=== PATIENT | male | born 1935 | race Caucasian/White ===

== ENCOUNTER 2020-08-02 23:16 | Emergency (ER) | payer MEDICARE, BC, SELFPAY ==
--- NOTE | ~2020-08-02 | XR_ITS ---
EXAMINATION: XR G tube replacement w image DATE: 08/02/2020 23:56 INDICATION: Feeding tube placement. TECHNIQUE: A supine view of the abdomen was obtained. COMPARISON: Abdomen radiograph 05/10/2019 FINDINGS: There are no dilated loops of bowel. There is contrast in the gastrostomy tube and in the s tomach and duodenum. The gastrostomy tube is in expected position in the body of the stomach. There i s a filter in the inferior vena cava. IMPRESSION: 1. Gastrostomy tube in expected position. Reviewed, dictated and finalized at location A. [employer]
[2020-08-02 23:15] VITALS: BP 139/75; PULSE 88; RESP 19; TEMP 37; O2SAT 94
--- NOTE | 2020-08-02 23:20 | ED.GENADULT ---
HPI - General Adult General Chief complaint: Unspecified Stated complaint: g tube pulled out Time Seen by Provider: 08/02/20 23:20 Source: EMS Mode of arrival: EMS Limitations: dementia History of Present Illness HPI narrative: Patient brought in from a long-term after he pulled his G-tube out. No other complaints. Unable to obtain any history from the patient due to history of dementia. Related Data Allergies Allergy/AdvReac Type Severity Reaction Status Date / Time MEPERIDINE HCL Allergy Mild Uncoded 05/10/19 14:27 Review of Systems Review of Systems: ROS unobtainable: Yes unobtainable due to mental status (History of dementia) Exam Const: General: no acute distress and alert Orientation/consciousness: No patient oriented x3 Limitations: behavioral limitations HENMT: Head: normal to inspection Eyes: Conjunctivae: conjunctivae normal Pupils: Equal, round and reactive pupils present EOM: EOMs intact bilaterally Neck: Neck: normal visual inspection Chest: Chest palpation & inspection: normal inspection of the chest Resp: Effort & Inspection: normal respiratory effort, not labored, no retractions, not tachypneic and no use of accessory muscles Auscultation: not clear to auscultation bilaterally Cardio: Rate: regular rate Rhythm: regular rhythm Heart sounds: Murmur heart sound present GI: GI Palp: Yes Soft to palpation, No Guarding due to palpation present (GI) and No Rigid due to palpation Auscultation: normal bowel sounds Skin: General skin exam: normal color Neuro: Other: Not oriented to time place name or situation, moves all 4 extremities. Unable to obtain complete neuro exam patient uncooperative and unable to understand or follow commands. Course Vital Signs Vital signs: Vital Signs Temperature 37.0 C 08/02/20 23:15 Pulse Rate 88 08/02/20 23:15 Respiratory Rate 19 08/02/20 23:15 Blood Pressure 139/75 08/02/20 23:15 Pulse Oximetry 94 08/02/20 23:15 Temperature 37.0 C 08/02/20 23:15 Pulse Rate 88 08/02/20 23:15 Respiratory Rate 19 08/02/20 23:15 Blood Pressure 139/75 08/02/20 23:15 Pulse Oximetry 94 08/02/20 23:15 Procedures Feeding Tube Replacement Feeding Tube #1: Feeding Tube Placement Date: 08/03/20 Feeding Tube Placement Time: 23:30 Type of Tube: G-J Tube Insertion Site Prior to Procedure: clean Tube Used for Reinsertion: other Ma[place] Tube Size (F): 16 Balloon size (mL): 20 Verification of Placement: auscultation, KUB and gastrografin injection Patient Tolerated Procedure: well Medical Decision Making Vital Signs Vital Signs: Vital Signs Temperature 37.0 C 08/02/20 23:15 Pulse Rate 88 08/02/20 23:15 Respiratory Rate 19 08/02/20 23:15 Blood Pressure 139/75 08/02/20 23:15 Pulse Oximetry 94 08/02/20 23:15 Temperature 37.0 C 08/02/20 23:15 Pulse Rate 88 08/02/20 23:15 Respiratory Rate 19 08/02/20 23:15 Blood Pressure 139/75 08/02/20 23:15 Pulse Oximetry 94 08/02/20 23:15 Discharge Plan Discharge Clinical Impression: Gastrojejunostomy tube dislodgement Patient Disposition: NH Long Term/Asst Living Condition: Improved Instructions: Antibiotic Form, How to Use and Care for Your PEG Tube (ED) Follow-up/Referrals: Reynold Sandy MD [Primary Care Provider] - 08/06/20 Time of Disposition: 00:10
--- NOTE | 2020-08-02 23:38 | PC.NURSE ---
Pt. G-tube replaced by ERP [place]. Gtube secured w/ 20 ml syringe and gauze dressing.
--- NOTE | 2020-08-03 00:32 | PC.NURSE ---
Called [facility] for pt. transport. ETA [id number].
--- NOTE | 2020-08-03 00:33 | PC.NURSE ---
This RN attempted to call reports 3x. uable to give report
--- NOTE | 2020-08-03 00:34 | PC.NURSE ---
Report to Feliciano leavitt RN
[2020-08-03 00:54] VITALS: BP 133/87; PULSE 100; RESP 12; O2SAT 94
== END 2020-08-03 01:44 ==
PROVIDERS: Emergency Provider Emergency Medicine; PCP Family Medicine
DX: Z43.1 Encounter for attention to gastrostomy (principal); F03.90 Unspecified dementia, unspecified severity, without behavioral disturbance, psychotic disturbance, mood disturbance, and anxiety
CPT/HCPCS: 49450; 99284

== ENCOUNTER 2020-10-02 06:05 | Inpatient (IN) | payer MEDICARE, BC, SELFPAY ==
[2020-10-02] VITALS (19 sets, daily range): BP systolic 69–122; BP diastolic 34–83; PULSE 77–160; RESP 16–24; TEMP 36.6–37.3; O2SAT 88–100; BMI 24.3
--- NOTE | ~2020-10-02 | XR_ITS ---
XR chest 1V portable 10/02/2020 08:01 Indication: Infiltrates noted on G-tube examination Procedure: AP portable chest Comparison: Comparison to multiple prior studies sequentially, with oldest reviewed study dated 06/29. Findings: Diffuse right-sided airspace disease. Right pleural effusion. Mediastinal shift to the righ t. Right IJ central line tip in SVC. No pneumothorax identified. Impression: 1: Diffuse asymmetric right-sided airspace disease with volume loss which may represent a combination of pneumonia and atelectasis. 2: Right pleural effusion. Reviewed, dictated and finalized at location A. WEIGHER Impression: 1: Diffuse asymmetric right-sided airspace disease with volume loss which may r epresent a combination of pneumonia and atelectasis. 2: Right pleural effusion.
--- NOTE | ~2020-10-02 | XR_ITS ---
XR G tube evaluation w imaging 10/02/2020 07:40 Indication: Evaluate gastric tube position Procedure: Supine view of the abdomen Comparison: Comparison to multiple prior studies sequentially, with oldest reviewed study dated 08/30. Findings: There are mildly distended small bowel loops in the left upper abdomen. There is contrast i n the stomach and duodenum. Gastric tube in the body the stomach. IVC filter partially visualized. Th ere is a right pleural effusion with by basilar airspace disease Impression: 1: Gastrostomy tube in expected position.. 2: Right basilar airspace disease, suspicious for pneumonia. Consider correlation with chest x-ray. 3: Small right pleural effusion. Reviewed, dictated and finalized at location A. TING MACHINE OPERATOR Impression: 1: Gastrostomy tube in expected position.. 2: Right basilar airspace disease, suspicious for pneumonia. Consider correlat ion with chest x-ray. 3: Small right pleural effusion.
--- NOTE | ~2020-10-02 | XR_ITS ---
EXAMINATION: [id number] EXAM DATE: 10/03/2020 17:31 INDICATION: Right pleural effusion. Postthoracentesis. TECHNIQUE: Portable AP frontal chest x-ray was obtained. Comparison is made to prior examination from earlier same date. FINDINGS: There is a right-sided ventricular shunt. Interval decrease in size of the small to moderat e right pleural effusion following thoracentesis. No evidence of postprocedure pneumothorax. Mild car diomegaly. Skin fold over the left hemithorax. There is right basilar atelectasis. Possible superimpo sed edema and pneumonia. IMPRESSION: 1. Small to moderate right pleural effusion with decrease in size following thoracentesis. 2. Right basilar atelectasis and possibly infection. Reviewed, dictated and finalized at location A. EL ENGINEER IMPRESSION: 1. Small to moderate right pleural effusion with decrease in size following th oracentesis. 2. Right basilar atelectasis and possibly infection.
--- NOTE | ~2020-10-02 | CT_ITS ---
EXAMINATION: CTA chest PE protocol DATE: 10/02/2020 09:38 INDICATION: Hypoxia. TECHNIQUE: Computed tomography angiography (CTA) of the chest was performed with 100 mL Omnipaque-350 intravenous contrast timed to evaluate the pulmonary arteries. Coronal maximum intensity projection 3D-reconstructions were created by the technologist. Automated exposure control and iterative reconst ruction technique were employed. The dose-length product was 695.30 mGy-cm. COMPARISON: Chest CT 05/22/2015 FINDINGS: The patient is laying on his right side. There is mild scarring at left lung apex. Again se en are a few nodules in left lower lobe measuring up to 7 mm, likely benign. There is a moderate-size d right pleural effusion. There is adjacent passive atelectasis in right lung. There is mucous in bro nchus intermedius. There are worsened parenchymal calcifications in right lung in the areas of atelec tasis, likely a component of chronic lung disease. There is mediastinal and right supraclavicular lym phadenopathy. There is a right internal jugular central venous catheter with tip in superior vena cav a. There is left atrial enlargement of the heart. There are coronary artery calcifications. No perica rdial effusion. There is a filter in the infrarenal inferior vena cava. There are cysts in the kidney s measuring up to 2.3 cm on the right. Partially visualized is a 1.3 cm mass in right kidney measurin g soft tissue attenuation. There is bulky left para-aortic and aortocaval lymphadenopathy. For exampl e, a left para-aortic bryan mass measures 7.3 x 4.3 cm. There is periportal lymphadenopathy. There ar e gallstones in the gallbladder, which is normal in size. There is no pulmonary embolus. There is kyp hosis of thoracic spine. There is severe cervical spondylosis and mild thoracic spondylosis. There is mild chronic anterior wedging of multiple thoracic vertebral bodies. IMPRESSION: 1. No pulmonary embolus. 2. Chest and abdominal lymphadenopathy suspicious for malignancy such as lymphoma. 3. Partially visualized 1.3 cm right kidney mass, which may be a hemorrhagic cyst or less likely a so lid neoplasm. Abdomen CT without and with contrast is recommended. 4. Moderate-sized right pleural effusion. 5. Worsened chronic right lung disease. Reviewed, dictated and finalized at location A. ANALYST IMPRESSION: 1. No pulmonary embolus. 2. Chest and abdominal lymphadenopathy suspicious for malignancy such as lympho ma. 3. Partially visualized 1.3 cm right kidney mass, which may be a hemorrhagic cy st or less likely a solid neoplasm. Abdomen CT without and with contrast is rec ommended. 4. Moderate-sized right pleural effusion. 5. Worsened chronic right lung disease.
--- NOTE | ~2020-10-02 | US_ITS ---
EXAMINATION: US thoracentesis DATE: 10/03/2020 17:28 INDICATION: pleural effusion TECHNIQUE: The skin was prepped and draped in sterile fashion. 1% lidocaine was used for local anesth esia. Under ultrasound guidance, a 5 Fr catheter with trochar was advanced into the right pleural eff usion. Fluid was aspirated. The catheter was removed, and a dressing was applied. There were no immed iate complications. FINDINGS: Ultrasound images demonstrate a right pleural effusion and the catheter within the fluid. IMPRESSION: 1. Successful ultrasound-guided thoracentesis yielding 1000 mL of clear, yellow fluid. Reviewed, dictated and finalized at location A. E MACHINE OPERATOR IMPRESSION: 1. Successful ultrasound-guided thoracentesis yielding 1000 mL of clear, yello w fluid.
--- NOTE | ~2020-10-02 | XR_ITS ---
XR chest 1V portable 10/05/2020 14:14 Indication: Respiratory distress Procedure: AP portable chest Comparison: Comparison to multiple prior studies sequentially, with oldest reviewed study dated 06/29. Findings: Right IJ central line tip in the SVC. Diffuse pulmonary edema. Right pleural effusion. No p neumothorax. Mediastinal shift to the right, consistent with volume loss. No pneumothorax. No acute o sseous abnormality. Impression: 1: Diffuse bilateral airspace disease with volume loss on the right. Differential diagnosis includes edema, pneumonia and/or atelectasis. 2: Small right pleural effusion. Reviewed, dictated and finalized at location A. GER ELECTRICAL Impression: 1: Diffuse bilateral airspace disease with volume loss on the right. Differenti al diagnosis includes edema, pneumonia and/or atelectasis. 2: Small right pleural effusion.
--- NOTE | 2020-10-02 07:12 | PC.NURSE ---
Report received from AIDEN Chino. Pt resting comfortably on stretcher. Pt is noncommunicative and does not follow commands. Resp nonlabored, abd soft with g-tube in place. No dried blood noted to nares, mouth, or g-tube insert spot. Note dried blood to right elbow.
--- NOTE | 2020-10-02 07:14 | ED.GENADULT ---
HPI - General Adult General Chief complaint: Unspecified Stated complaint: gtube disconnected/combative Time Seen by Provider: 10/02/20 07:07 Source: EMS and RN notes reviewed History of Present Illness HPI narrative: Patient is a 84 y/o male sent here for gastrotomy tube evaluation and possible bleeding. NH reports that patient's g tube is disconnect and they noticed some blood on the pillow, but did not notice any bleeding. Patient is non verbal and unable to provide any history. Related Data Home Medications Medication Instructions Recorded Confirmed albuterol sulfate 90 mcg INHALATION QID 10/02/20 finasteride 5 mg FEEDING TUBE DAILY 10/02/20 lansoprazole 30 mg DAILY 10/02/20 levalbuterol HCl 0.63 mg INHALATION QID 10/02/20 loperamide [Anti-Diarrheal 2 mg FEEDING TUBE Q4H PRN 10/02/20 (loperamide)] sertraline 100 mg FEEDING TUBE DAILY 10/02/20 Allergies Allergy/AdvReac Type Severity Reaction Status Date / Time MEPERIDINE HCL Allergy Mild Uncoded 05/10/19 14:27 Review of Systems Review of Systems: ROS unobtainable: Yes unobtainable due to mental status Exam Const: General: no acute distress and well developed Orientation/consciousness: confusion HENMT: Head: normocephalic Ears: external ears normal General nose exam: Normal external nose present Eyes: General: appearance normal, both eyes and all related structures Conjunctivae: conjunctivae normal Neck: Neck: normal visual inspection and full ROM Chest: Chest palpation & inspection: normal inspection of the chest and no tenderness Resp: Effort & Inspection: normal respiratory effort Auscultation: clear to auscultation bilaterally Cardio: Rate: regular rate Rhythm: regular rhythm GI: Inspection: other (gastrostomy tube in place) GI Palp: No abdominal tenderness and Yes Soft to palpation Skin: General skin exam: normal color and turgor normal Other: some dry blood on right elbow, abrasion with scab on abdomen, no active bleeding Neuro: Cognition (Neuro): abnormal cognition Extrem: General: normal to inspection, full ROM and no pedal edema Psych: Appearance: grossly normal Affect: Blunted affect present Course Consultations Consultation #1: Discussed with Dr. Ambriz, who agrees to admit. Date: 10/02/20 Time: 09:08 Vital Signs Vital signs: Vital Signs Temperature 36.6 C 10/02/20 06:09 Pulse Rate 89 10/02/20 06:09 Respiratory Rate 18 10/02/20 06:09 Blood Pressure 98/73 L 10/02/20 06:09 Pulse Oximetry 93 10/02/20 06:09 Temperature 36.6 C 10/02/20 06:09 Pulse Rate 90 10/02/20 11:40 Respiratory Rate 16 10/02/20 11:40 Blood Pressure 100/83 10/02/20 11:40 Pulse Oximetry 93 10/02/20 11:40 Medical Decision Making Vital Signs Vital Signs: Vital Signs Temperature 36.6 C 10/02/20 06:09 Pulse Rate 89 10/02/20 06:09 Respiratory Rate 18 10/02/20 06:09 Blood Pressure 98/73 L 10/02/20 06:09 Pulse Oximetry 93 10/02/20 06:09 Temperature 36.6 C 10/02/20 06:09 Pulse Rate 90 10/02/20 11:40 Respiratory Rate 16 10/02/20 11:40 Blood Pressure 100/83 10/02/20 11:40 Pulse Oximetry 93 10/02/20 11:40 Lab Data Result diagrams: 10/02/20 07:28 10/02/20 07:28 Labs: Lab Results 10/02/20 10/02/20 10/02/20 Range/Units 07:28 07:28 07:28 WBC 9.7 (4.5-10.0) K/mm3 RBC 3.90 L (4.6-6.20) M/mm3 Hgb 12.3 L (14.0-18.0) g/dL Hct 36.3 L (42.0-52.0) % MCV 93.1 (80-100) fl MCH 31.5 (26-34) pg MCHC 33.9 (32-36) g/dl RDW 14.1 (11.5-14.5) % Plt Count 278 (150-375) k/mm3 MPV 9.2 (7.4-10.4) fl Immature Gran % (Auto) 1.0 H (0-0.5) % Neut % (Auto) 78.8 H (45.5-73.1) % Lymph % (Auto) 4.2 L (18.3-44.2) % [place] % (Auto) 13.0 H (2.6-8.5) % Eos % (Auto) 2.4 (0-4.4) % Baso % (Auto) 0.6 (0.2-1.2) % Lymph # (Auto) 0.41 L (0.9-3.2) K/mm3 [place] # (Auto) 1.3 H (0.1-0.6) K/mm3 Eos
--- NOTE | 2020-10-02 07:30 | PC.NURSE ---
Labs collected with assist x2. Pt combative when touched, and does not follow commands for xray and lying still.
[2020-10-02 07:35] LABS: Basophils Absolute Auto 0.1 K/mm3 (0.0-0.1); Basophils Percent Auto 0.6 % (0.2-1.2); Eosinophils Absolute Auto 0.2 K/mm3 (0-0.3); Eosinophils Percent Auto 2.4 % (0-4.4); Hematocrit 36.3 % (42.0-52.0); Hemoglobin 12.3 g/dL (14.0-18.0); Lymphocytes Absolute Auto 0.41 K/mm3 (0.9-3.2); Lymphocytes Percent Auto 4.2 % (18.3-44.2); Mean Corpuscular HGB Conc 33.9 g/dl (32-36); Mean Corpuscular Hemoglobin 31.5 pg (26-34); Mean Corpuscular Volume 93.1 fl (80-100); Mean Platelet Volume 9.2 fl (7.4-10.4); Monocytes Absolute Auto 1.3 K/mm3 (0.1-0.6); Neutrophils Absolute Auto 7.6 K/mm3 (1.3-6.7); Neutrophils Percent Auto 78.8 % (45.5-73.1); Platelet Count Result 278 k/mm3 (150-375); Red Cell Distribution Width 14.1 % (11.5-14.5); White Blood Count 9.7 K/mm3 (4.5-10.0)
[2020-10-02 07:47] LABS: Platelet Estimate Adequate (Adequate); Stomatocytes 1+ (NORMAL)
[2020-10-02 07:48] LABS: Anion Gap 4 mmol/L (8-16); Blood Urea Nitrogen 21 mg/dL (9-20); Calcium 8.7 mg/dL (8.4-10.2); Carbon Dioxide 29 mmol/L (22-30); Chloride 97 mmol/L (98-107); Estimated CRCL calculation 57 ml/min; Estimated Glomerular Filt Rate > 60; Glucose 101 mg/dL (75-110); Potassium 4.8 mmol/L (3.4-5.0); Sodium 130 mmol/L (137-145)
[2020-10-02 08:21] LABS: NT Pro B Type Natriuretic Pept 1520 PG/ML (5-100)
--- NOTE | 2020-10-02 08:31 | ECG_ITS ---
Measurements Intervals [place] Rate: 83 P: 50 VA: 146 QRS: 10 QRSD: 97 T: 86 QT: 371 QTc: 438 Interpretive Statements SINUS RHYTHM CANNOT RULE OUT SEPTAL INFARCT, AGE INDETERMINATE NONSPECIFIC ST ELEVATION IN ANTERIOR LEADS BORDERLINE ST-T WAVE ABNORMALITY- INF/HIGH LAT LEADS BASELINE ARTIFACT- I, II, III, AVR, AVL, AVF, V1, V4-V6 BORDERLINE ECG Electronically Signed On 10-02-2020 9:20:32 MERCHANDISE ASSOCIATE by Kiet Garrison D.O.
--- NOTE | 2020-10-02 08:31 | PC.NURSE ---
Note sp02 85-88% on room air. Pt awoken, instructed to take deep breaths, and pt does not follow commands to do so. sp02 remains 88-89%. Attempt to place pt on 2L/NC, pt will not leave the nasal cannula on; o2 increased to 10L blow by and spo2 increases to 91%.
--- NOTE | 2020-10-02 08:59 | PC.NURSE ---
IV initiated with 1st attempt with assist x4 to help hold. Pt continues to repeatedly swipe away at the oxygen and tubing. Spo2 room air when awake and agitated 93%.
--- NOTE | 2020-10-02 09:02 | PC.NURSE ---
Pt incontinent of stool x2 during the IV initiation and obtaining the EKG. Note wounds to gluteal folds.
[2020-10-02] MEDS: FUROSEMIDE INJ 40 MG/4 ML VIAL IV PUSH (09:12)
[2020-10-02 09:25] LABS: Lactic Acid Reflex 1.6 mmol/L (0.7-2.1)
[2020-10-02] MEDS: LORazepam INJ (*CRX) 2 MG/ML VIAL (09:26)
--- NOTE | 2020-10-02 09:31 | PC.NURSE ---
Pt given 2mg ativan IVP per v.o. Dr. Rodgers for combativeness in CT Scan. Pt seems to calm down but thrashes arms when attempt to place o2 near face or when the table moves. Will attempt CTA.
--- NOTE | 2020-10-02 09:51 | PC.NURSE ---
Pt returns from CT, per tech was able to complete the test. Note blood to right shoulder, the side the patient is lying. Note pt has large cough then spits out phlegm with dark blood clots in it. Airway appears clear. spo2 99% with o2 near face. Ketamine not given due to scan being completed after ativan given.
--- NOTE | 2020-10-02 10:14 | ECG_ITS ---
Measurements Intervals [place] Rate: 156 P: RI: 0 QRS: -50 QRSD: 98 T: 132 QT: 281 QTc: 454 Interpretive Statements SUPRAVENTRICULAR TACHYCARDIA LEFT AXIS DEVIATION ANTEROSEPTAL INFARCT, AGE INDETERMINATE ST-T WAVE ABNORMALITY IN ANTEROLAT/HIGH LAT LEADS- CONSIDER ISCHEMIA BASELINE WANDER- I ABNORMAL ECG Electronically Signed On 10-02-2020 10:23:17 BUSINESS INITIATIVES MANAGER by Kiet Garrison D.O.
--- NOTE | 2020-10-02 10:16 | PC.NURSE ---
Report to 3rd floor, return to room to transport pt to floor, note pt's heart rate up to 160's, drop in sp02. Attempt to suction pt clamping down teeth. Pt continuous grunting, otherwise remains nonverbal. O2 placed via NRB mask and pt does not attempt to pull it off. Dr. Rodgers aware of pt's change in condition. Repeat EKG being done.
--- NOTE | 2020-10-02 10:20 | PC.NURSE ---
Covid swab collected nasophargeal per direction of recharger as pt clamping mouth shut and unable to obtain a pharyngeal swab.
[2020-10-02] MEDS: ADENOSINE IV SOLN 6 MG/2 ML VIAL IV PUSH (10:31)
--- NOTE | 2020-10-02 10:37 | PC.NURSE ---
Adenosine given IVP as ordered. Note pt's heart rate slows to 96, appears to be SR in nature. Pt now leaving NRB mask in place, sp02 90% on 15L. Note pt has bleeding from left nare where covid swab obtained. Awaiting ABG draw.
--- NOTE | 2020-10-02 10:49 | PC.NURSE ---
RT at bedside to attempt ABG's.
--- NOTE | 2020-10-02 11:02 | ECG_ITS ---
Measurements Intervals [place] Rate: 94 P: 67 MI: 146 QRS: -14 QRSD: 91 T: 85 QT: 388 QTc: 485 Interpretive Statements SINUS RHYTHM VENTRICULAR PREMATURE COMPLEX CANNOT RULE OUT SEPTAL INFARCT, AGE INDETERMINATE BORDERLINE ST-T WAVE ABNORMALITY- HIGH LATERAL LEADS ABNORMAL ECG Electronically Signed On 10-02-2020 11:13:32 CONCRETE BUCKET HOOKER by Kiet Garrison D.O.
[2020-10-02 11:03] LABS: Alveolar/Arterial O2 Gradient 613.3 mmHg; Base Excess ABG -1.5 mEq/l (+/-2.0); Fractional Inspired Oxygen 100 %; HCO3 ABG 22.5 mEq/l (22.0-26.0); Oxygen Content ABG 17.3 %vol (16.0-22.0); PCO2 ABG 35.6 mmHg (35.0-45.0); PO2 ABG 64.1 mmHg (80.0-100.0); PO2 FiO2 Ratio Arterial Blood 0.64 %; Total Hemoglobin 13.5 g/dL (12.0-18.0); pH ABG 7.418 (7.350-7.450)
[2020-10-02 11:04] LABS: Device NON-REBREATHER MASK; Site Drawn LEFT BRACHIAL
--- NOTE | 2020-10-02 11:10 | PC.NURSE ---
[facility] refaxed to [facility].
--- NOTE | 2020-10-02 11:16 | PC.NURSE ---
3rd EKG done as pt's heart rate has decreased.
--- NOTE | 2020-10-02 11:23 | PC.NURSE ---
Pt's neice and porcelain enameling supervisor of pt's (Keely @ [phone]) updated in [place]. States that the patient received the covid vaccine approx 1 wk ago.
--- NOTE | 2020-10-02 11:45 | ADMGEN ---
This patient, Donald Marroquin, was admitted to IMU Room 214-01 at 1145 on 10/02/20. Patient/family oriented to hospital policies and general routines including ID bracelet, bed and alarms, visiting hours, pain management, procedures, bathroom and other care routines, personal items, smoking policy, room service/diet, and visiting hours. Information on how to activate the Rapid Response Team has been discussed. Patient/Family are encouraged to report perceived risks to care and to ask questions if they do not understand what they are told or what they should do.
--- NOTE | 2020-10-02 12:29 | PM.CNCAR ---
Assessment and Plan Assessment and plan (1) Paroxysmal supraventricular tachycardia: Code(s): I47.1 - Supraventricular tachycardia Status: Acute Assessment and Plan: Probably related to respiratory status including worsening chronic right lung disease, right pleural effusion, and possible pneumonia. Restored sinus rhythm with Adenosine in ED. Start Metoprolol tartate 12.5 mg BID with parameters. (2) CHF (congestive heart failure): Qualifiers: Heart failure chronicity: unspecified Heart failure type: unspecified Qualified Code(s): I50.9 - Heart failure, unspecified Code(s): I50.9 - Heart failure, unspecified Status: Acute Assessment and Plan: He does not appear to be in heart failure and looks dry. No prior cardiac history. Has right pleural effusion which could be related to pneumonia and has lymphadenopathy s/o lymphoma. Obtain echo. (3) Acute respiratory failure with hypoxia: Code(s): J96.01 - Acute respiratory failure with hypoxia Status: Acute Assessment and Plan: On Oxygen. Management per hospitalist. (4) Person under investigation for COVID-19: Code(s): Z20.822 - Contact with and (suspected) exposure to COVID-19 Status: Acute History of Present Illness History of Present Illness Consult date/time: 10/02/20 12:29 Reason for consult: PSVT. HPI is based on ER documentation as patient is nonverbal. 84 yr old man from [facility] and was sent to ED after nurse noted blood on his pillow and G-tube pulled. No known prior cardiac history. No evidence of bleeding currently. In ED patient was noted to go into SVT, given Adenosine and restored sinus rhythm. He is hypoxic with pulse ox at 80%. Currently on face mask oxygen. CXR showed right pleural effusion, right airspace opacity may represent pneumonia/atelectasis. CTA chest shows no pulm embolism, chest and abdominal lymphadenopathy s/o lymphoma; right kidney mass, mod right pleural effusion; worsening chronic right lung disease. EKG shows sinus rhythm, borderline ST-T wave abnormality. Reason For Visit: acute respiratory failure with hypoxia Review of Systems Review of Systems: ROS unobtainable: Yes unobtainable due to medical condition and unobtainable due to mental status Meds Home Medications and Allergies Home Medications Medication Instructions Recorded Confirmed Type albuterol sulfate 90 mcg INHALATION QID 10/02/20 History finasteride 5 mg FEEDING TUBE DAILY 10/02/20 History lansoprazole 30 mg DAILY 10/02/20 History levalbuterol HCl 0.63 mg INHALATION QID 10/02/20 History loperamide [Anti-Diarrheal 2 mg FEEDING TUBE Q4H PRN 10/02/20 History (loperamide)] sertraline 100 mg FEEDING TUBE DAILY 10/02/20 History Allergies Allergy/AdvReac Type Severity Reaction Status Date / Time MEPERIDINE HCL Allergy Mild Uncoded 05/10/19 14:27 Vital Signs Vital Signs - 24 hr 10/02/20 06:09 10/02/20 08:03 10/02/20 09:00 Temperature 97.8 F Pulse Rate 89 86 81 Respiratory Rate 18 16 Blood Pressure 98/73 L 103/53 L Pulse Oximetry 93 95 96 10/02/20 09:01 10/02/20 09:02 10/02/20 09:03 Temperature Pulse Rate 83 84 83 Respiratory Rate Blood Pressure 105/54 L Pulse Oximetry 96 97 10/02/20 09:41 10/02/20 09:48 10/02/20 10:01 Temperature Pulse Rate 85 85 133 H Respiratory Rate Blood Pressure 112/48 L Pulse Oximetry 94 89 L 10/02/20 10:15 10/02/20 10:33 10/02/20 10:58 Temperature Pulse Rate 160 H 100 101 H Respiratory Rate Blood Pressure 122/71 Pulse Oximetry 88 L 91 10/02/20 11:00 10/02/20 11:40 Temperature Pulse Rate 98 90 Respiratory Rate 16 Blood Pressure 100/83 Pulse Oximetry 93 Exam Const: General: patient obtunded and other (nonverbal) Resp: Auscultation: no crackles, no rales, no rhonchi, no wheezes and diminished lung sounds Cardio: Jugular venous distension: no JVD Rate: regular rate Rhythm:
--- NOTE | 2020-10-02 13:20 | PM.IMHP ---
H&P: HPI History of Present Illness Date/Time: 10/02/20 13:20 Chief Complaint: G tube dysfunction Narrative: Donald Marroquin is a 84 year old male who comes from [facility]. The patient came from the halfway for G-tube evaluation. Was possibly bleeding. Patient now has a dressing over the G-tube. The halfway reports that the G-tube was disconnected than 0 some blood on the pillow. But did not notice any bleeding from anywhere else. The patient is nonverbal and is not able to answer any questions. He is a poor historian. The patient is afebrile and his pulse rate was noted to be 89 blood pressure 100/83. EKG from earlier today shows supraventricular tachycardia. Anterior septal infarct age indeterminate ST wave abnormality. Cardiology has been consulted. Cardiology noted that the patient had paroxysmal supraventricular tachycardia. Could be related to his chronic lung disease right pleural effusion and possible pneumonia. He was restored to sinus rhythm with adenosine in the emergency room. Cardiology recommended metoprolol 12.5 mg with parameters b.i.d.. Patient also does not appear to be in congestive heart failure and has no prior history although an echo has been ordered. Patient was placed on a non-rebreather and he is being ruled out for COVID-19. It was noted that the patient did have contact with other people with COVID.. Chest and abdominal lymphadenopathy suspicious for limb malignancy such as a lymphoma. Partially visualized 1.3 cm right kidney mass which may be hemorrhagic cyst or least likely is solid neoplasm abdominal CT without and with contrast is recommended. Moderate size with pleural effusion worsens right lung disease. Admitted to inpatient status on the date of service of 10/02/2020. Review of Systems Review of Systems: ROS unobtainable: Yes unobtainable due to mental status [facility] Past Medical History Medical History (Updated 10/02/20 @ 14:03 by Sharona Boyle NP) BPH (benign prostatic hyperplasia) Chronic GERD CVA (cerebral vascular accident) Surgical History Surgical History (Updated 10/02/20 @ 14:18 by Sharona Boyle NP) History of total hip replacement Right hip replacement hardware was seen on an old x-ray last year. Status post insertion of percutaneous endoscopic gastrostomy (PEG) tube Family History Family History (Updated 10/02/20 @ 14:11 by Sharona Boyle NP) Daughter Pancreatic cancer Social History Social History (Updated 10/02/20 @ 14:09 by Sharona Boyle NP) Social History: [facility]. The patient is noncommunicative due to his stroke. The knees is his durable power divorce attorney for healthcare. The niece is also taking care the patient's [place]. The patient has a living will which is a full code. I had a long discussion with the niece who is the power divorce attorney concerning the full code. The family is going to me and have a discussion about code status. The patient used to smoke according to the niece. 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 There is no other family and the power divorce attorney is the niece to his . Meds Home Medications and Allergies Home Medications Medication Instructions Recorded Confirmed Type albuterol sulfate 90 mcg INHALATION QID 10/02/20 History finasteride 5 mg FEEDING TUBE DAILY 10/02/20 History lansoprazole 30 mg DAILY 10/02/20 History levalbuterol HCl 0.63 mg INHALATION QID 10/02/20 History loperamide [Anti-Diarrheal 2 mg FEEDING TUBE Q4H PRN 10/02/20 History (loperamide)] sertraline 100 mg FEEDING TUBE DAILY 10/02/20 History Allergies Allergy/AdvReac Type Severity Reaction Status Date / Time MEPERIDINE HCL Allergy Mild Uncoded 05/10/19 14:27 Vital Signs Vital Signs - 24 hr 10/02/20 06:09 10/02/20 08:03 10/02/20 09:00 Temperature 36.6 C Pulse Rate 89 86 81 Respiratory Rate 18 1
[2020-10-02 14:50] LABS: Albumin Level 3.1 g/dL (3.5-5.1); Amylase 105 U/L (30-110); Bilirubin,Total 0.5 mg/dL (0.2-1.3); Cholesterol 109 mg/dL (0-200); Lactate Dehydrogenase 441 U/L (313-618)
[2020-10-02 15:48] LABS: Troponin I 0.153 ng/mL (0.000-0.034)
--- NOTE | 2020-10-02 16:53 | PC.NURSE ---
Called [facility] at 1346 in order to obtain medication list, H & P, and medical background information. Spoke with anurse named Angely who stated she would, fax the information over in two minutes. At 1415 I called the facility back since I still had not received any information only to be hung up on. I attempted again at 1652, and no one in the facility picked up the phone. Will continue to try and obtain medical background information.
[2020-10-02] MEDS: SODIUM CHLORIDE 0.9% IV 1,000 ML 999 ML IV CONT (17:19)
[2020-10-02] MEDS: SODIUM CHLORIDE 0.9% IV 1,000 ML 125 ML IV CONT (17:19)
[2020-10-02 19:42] LABS: SARS-CoV-2 RNA PCR Negative
[2020-10-02] MEDS: LORazepam INJ (*CRX) 2 MG/ML VIAL 1 MG IV PUSH (21:34)
[2020-10-02] MEDS: MORPHINE SULFATE (*CRX) 2 MG/ML INJ IV PUSH (21:34)
[2020-10-02] MEDS: PANTOPRAZOLE SODIUM IV 40 MG VIAL IV PUSH (21:34)
--- NOTE | 2020-10-02 21:37 | PC.NURSE ---
This patient, Donald Marroquin, was transferred to [ ] on 10/02/20 at 2137. Personal belongings sent with patient. Report given to [ ]. Appropriate documentation sent with patient. Karla WOLFE took report they are going to room 252
--- NOTE | 2020-10-02 22:13 | ADMGEN ---
This patient, Donald Marroquin, was admitted to Medical Room 252-01. Patient/family oriented to hospital policies and general routines including ID bracelet, bed and alarms, visiting hours, pain management, procedures, bathroom and other care routines, personal items, smoking policy, room service/diet, and visiting hours. Information on how to activate the Rapid Response Team has been discussed. Patient/Family are encouraged to report perceived risks to care and to ask questions if they do not understand what they are told or what they should do.
[2020-10-03] VITALS (7 sets, daily range): BP systolic 92–137; BP diastolic 41–99; PULSE 77–94; RESP 16–40; TEMP 36.6–36.9; O2SAT 92–100; BMI 32.8
[2020-10-03] MEDS: MORPHINE SULFATE (*CRX) 2 MG/ML INJ IV PUSH ×2 (01:12→06:01)
[2020-10-03] MEDS: SODIUM CHLORIDE 0.9% IV 1,000 ML 125 ML IV CONT (01:59)
--- NOTE | 2020-10-03 08:15 | PM.PNCARD ---
Progress Note: A&P Assessment and Plan (1) Paroxysmal supraventricular tachycardia: Code(s): I47.1 - Supraventricular tachycardia Status: Acute Assessment and Plan: Probably related to respiratory status including worsening chronic right lung disease, right pleural effusion, and possible pneumonia. Restored sinus rhythm with Adenosine in ED. No recurrence. Started on Metoprolol tartate 12.5 mg BID with parameters to prevent recurrence, however, that is discontinued due to hypotension. Receiving NS IVF now. (2) CHF (congestive heart failure): Qualifiers: Heart failure chronicity: unspecified Heart failure type: unspecified Qualified Code(s): I50.9 - Heart failure, unspecified Code(s): I50.9 - Heart failure, unspecified Status: Acute Assessment and Plan: He does not appear to be in heart failure and looks dry. No prior cardiac history. Has right pleural effusion which could be related to pneumonia and has lymphadenopathy s/o lymphoma. Obtain echo. Agree with right thoracentesis for diagnostic and therapeutic purposes. (3) Acute respiratory failure with hypoxia: Code(s): J96.01 - Acute respiratory failure with hypoxia Status: Acute Assessment and Plan: On Oxygen. Management per hospitalist. Subjective Date/time seen: 10/03/20 08:15 Patient is nonverbal and alert or oriented. Exam Const: General: patient obtunded and other (nonverbal) Resp: Auscultation: no crackles, no rales, no rhonchi, no wheezes and diminished lung sounds Cardio: Jugular venous distension: no JVD Rate: regular rate Rhythm: regular rhythm Heart sounds: no murmurs GI: GI Palp: No abdominal tenderness and Yes Soft to palpation Extrem: Right lower extremity: no edema Left lower extremity: no edema Objective Data Vital Signs Vital Signs: Vital Signs - 24 hr 10/02/20 09:00 10/02/20 09:01 10/02/20 09:02 Temperature Pulse Rate 81 83 84 Respiratory Rate Blood Pressure 105/54 L Pulse Oximetry 96 96 10/02/20 09:03 10/02/20 09:41 10/02/20 09:48 Temperature Pulse Rate 83 85 85 Respiratory Rate Blood Pressure 112/48 L Pulse Oximetry 97 94 10/02/20 10:01 10/02/20 10:15 10/02/20 10:33 Temperature Pulse Rate 133 H 160 H 100 Respiratory Rate Blood Pressure Pulse Oximetry 89 L 88 L 10/02/20 10:58 10/02/20 11:00 10/02/20 11:40 Temperature Pulse Rate 101 H 98 90 Respiratory Rate 16 Blood Pressure 122/71 100/83 Pulse Oximetry 91 93 10/02/20 12:00 10/02/20 14:00 10/02/20 16:00 Temperature 99.1 F 98.6 F Pulse Rate 96 81 80 Respiratory Rate 20 24 H Blood Pressure 102/59 L 69/34 L Pulse Oximetry 100 100 10/02/20 18:00 10/02/20 20:00 10/03/20 04:00 Temperature 97.8 F 97.8 F Pulse Rate 77 78 77 Respiratory Rate 16 24 H Blood Pressure 97/50 L 92/41 L Pulse Oximetry 99 100 Intake/Output Intake/Output: Intake & Output 09/30/20 10/01/20 10/02/20 10/03/20 23:59 23:59 23:59 23:59 Intake Total 300 1000 Balance 300 1000 Meds/Results Medications: Active Medications Generic Name Dose Route Start Last Admin Trade Name Freq PRN Reason Stop Dose Admin Sodium Chloride 1,000 mls @ 125 mls/hr 10/02/20 17:00 10/03/20 01:59 Normal Saline Iv IV CONT 125 mls/hr .Q8H MARQUITA Administration Lorazepam 1 mg 10/02/20 20:38 10/02/20 21:34 Lorazepam Inj (*Crx) 2 Mg/Ml Vial IV PUSH 1 mg Q6H PRN Administration Anxiety Miconazole Nitrate 1 applic 10/02/20 09:00 10/02/20 21:34 Miconazole 2% Antifungal Ointment 56 Gm TOPICAL 1 applic Q12HR MARQUITA Administration Morphine Sulfate 2 mg 10/02/20 20:38 10/03/20 06:01 Morphine Sulfate (*Crx) 2 Mg/Ml Inj IV PUSH 2 mg Q4H PRN Administration Pain Rated 7-10 Pantoprazole Sodium 40 mg 10/02/20 21:00 10/02/20 21:34 Pantoprazole Sodium Iv 40 Mg Vial IV PUSH 40 mg Q12HR MARQUITA Administration Radiology Results: ITS Im
[2020-10-03] MEDS: PANTOPRAZOLE SODIUM IV 40 MG VIAL IV PUSH (09:02)
[2020-10-03 09:31] LABS: Troponin I 0.114 ng/mL (0.000-0.034)
[2020-10-03] MEDS: AMPICILLIN SULB 3 GM/NS 100 ML 3 GM/100 ML VIAL IVPB ×2 (12:15→22:55)
[2020-10-03] MEDS: LANSOPRAZOLE ORAL SUSP 30 MG/10 ML ORAL.SUSP FEED TUBE (12:21)
--- NOTE | 2020-10-03 15:28 | PM.IMPN ---
Progress Note: A&P Assessment and Plan (1) Pleural effusion: Code(s): J90 - Pleural effusion, not elsewhere classified Status: Acute Assessment and Plan: Significant pleural effusion seen in the right lung -wide differential including infection, CHF, malignancy -plan for thoracentesis -continue oxygen as needed -await results and adjust treatment (2) Paroxysmal supraventricular tachycardia: Code(s): I47.1 - Supraventricular tachycardia Status: Acute Assessment and Plan: Resolved -patient was placed on metoprolol 12.5 mg b.i.d. 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 Not able to review the information with the patient. (4) Chronic GERD: Code(s): K21.9 - Gastro-esophageal reflux disease without esophagitis Status: Chronic Assessment and Plan: Continue PPI therapy (5) BPH (benign prostatic hyperplasia): Code(s): N40.0 - Benign prostatic hyperplasia without lower urinary tract symptoms Status: Chronic Assessment and Plan: Chronic (6) Complaint associated with gastric tube: Code(s): R68.89 - Other general symptoms and signs; Z93.1 - Gastrostomy status Status: Acute Assessment and Plan: No blood noted from tube today nor is pt coughing up blood. -reported blood on the sheet at the [facility] but no further details -Continue PPI -CT confirms placement (7) Acute respiratory failure with hypoxia: Code(s): J96.01 - Acute respiratory failure with hypoxia Status: Acute Assessment and Plan: Likely d/t pleural effusion as stated above. -pt keeps pulling off o2 -plan for thoracentesis -await results (8) Person under investigation for COVID-19: Code(s): Z20.822 - Contact with and (suspected) exposure to COVID-19 Status: Acute Assessment and Plan: Negative covid test -no fevers (9) CHF (congestive heart failure): Qualifiers: Heart failure chronicity: unspecified Heart failure type: unspecified Qualified Code(s): I50.9 - Heart failure, unspecified Code(s): I50.9 - Heart failure, unspecified Status: Acute Assessment and Plan: Await echo (10) Bacteremia: Code(s): R78.81 - Bacteremia Status: Acute Assessment and Plan: 1/2 blood cultures positive for gram positive cocci in cluster -Could be contaminate -Start vanc until further identification Additional Plan elevated d-dimer. Pt has IVC filter. Hx of bleeding. No further w/u or tx needed Time Spent With Patient Time with patient: 25 - 35 minutes Subjective Date/time seen: 10/03/20 15:28 Interval history: Pt is a 84-year-old nonverbal patient here for hypoxia. Patient was seen today and is unable to communicate. Nurse states he has been stable. Review of Systems Review of Systems: All systems reviewed & are unremarkable except as noted in HPI and below Exam Narrative: Exam Narrative: General: Elderly patient resting comfortably in bed HEENT: normocephalic, not keeping his oxygen on Neck: supple Neuro: Alert but not oriented or cooperative. Appears to move all limbs simultaneously CV: Patient was finding the exam and hard to auscultate the chest, regular rate and rhythm from what I could hear Resp: Significantly decreased breath sounds bilaterally Abd: Protuberant stomach but i
[2020-10-03 16:07] LABS: INR 1.1; Prothrombin Time 14.4 Seconds (11.1-14.7)
[2020-10-03 18:57] LABS: Appearance Pleural Fluid Hazy (Clear); Color Pleural Fluid Yellow (Colorless); Lymphocytes Pleural Fluid 7 %; Neutrophils Pleural Fluid 69 % (0-25); Nucleated Cell Pleural Fluid 793 /uL (0-1000); Pleural fluid source Pleural fluid; RBC Pleural Fluid 1573 /uL (0-0)
[2020-10-03 18:58] LABS: Macrophages Pleural Fluid 3 %; Mesothelial Cells Pleural Flui 7 %; Monocytes Pleural Fluid 14 %
--- NOTE | 2020-10-04 | ECHO_ITS ---
Patient Info Name: Donald Marroquin Age: 84 years : 1935 Gender: Male Ht: 68 in Wt: 215 lbs BSA: 2.20 m2 BP: 124 / 60 mmHg Technical Quality: Poor Exam Date: 10/04/2020 2:38 PM Exam Location: [facility] Patient Status: Inpatient Admit Date: 10/02/2020 Staff Ordering Physician: Nury Leblanc PA-C Energy Scheduler: Eusebio Graff, MARY KATE, RT Attending Provider: Cole Ambriz MD Referring Physician: [facility] ; Exam Type: CA echo doppler color flow Study Info Limited two-dimensional transthoracic echocardiogram is performed. Summary 1. Technically suboptimal study due to poor sonographic images. Limited study as no parasternal or subcostal images. 2. Left ventricular chamber dimension is normal. 3. Left ventricular systolic function is normal, estimated at 55-60%. However regional wall motion abnormality cannot be fully assessed without parasternal images. 4. There is moderately increased left ventricular wall thickness. 5. The left ventricular diastolic function is abnormal. 6. E/e' 14 is mildly elevated. 7. The aortic valve is not well visualized. 8. The mitral valve has not well visualized and severely calcified annulus. Left Ventricle Technically suboptimal study due to poor sonographic images. Limited study as no parasternal or subcostal images. Left ventricular systolic function is normal, estimated at 55-60%. However regional wall motion abnormality cannot be fully assessed without parasternal images. Left ventricular chamber dimension is normal. There is moderately increased left ventricular wall thickness. The left ventricular diastolic function is abnormal. E/e' 14 is mildly elevated. Right Ventricle Right ventricular chamber dimension is normal. Right ventricular systolic function is normal. Left Atria Left atrial chamber dimension is not well visualized. Right Atria Right atrial chamber dimension is not well visualized. Aortic Valve Cannot determine number of aortic valve leaflets or if there is aortic stenosis or regurgitation. The aortic valve is not well visualized. Pulmonic Valve The pulmonic valve is not well visualized. Mitral Valve The mitral valve has not well visualized and severely calcified annulus. Cannot determine if there is mitral stenosis or regurgitation. Tricuspid Valve The tricuspid valve leaflets are not well visualized. There is no tricuspid valve regurgitation. Pericardium/Pleural There is no pericardial effusion. Aorta The aortic root size at the sinus of Valsalva is not well visualized. Left Ventricular Outflow Tract Name Value Normal LVOT Doppler LVOT Peak Gradient 11 mmHg LVOT Mean Gradient 6 mmHg LVOT VTI 17 cm LVOT VTI/AV VTI Ratio 1.1 Mitral Valve Name Value Normal MV Doppler MV Peak Gradient 11 mmHg MV Mean Gradient 6 mmHg
[2020-10-04] MEDS: AMPICILLIN SULB 3 GM/NS 100 ML 3 GM/100 ML VIAL IVPB ×4 (04:53→23:29)
[2020-10-04] MEDS: LANSOPRAZOLE ORAL SUSP 30 MG/10 ML ORAL.SUSP FEED TUBE (04:56)
--- NOTE | 2020-10-04 05:26 | PC.NURSE ---
attempt to titrate oxygen. patient removes oxygen constantly. found patient at 88% on ra. rebounds with oxygen back on at 4l/min back to 95-99%.
[2020-10-04 05:35] VITALS: BP 124/60; PULSE 65; RESP 20; TEMP 36.2; O2SAT 99
[2020-10-04 06:02] LABS: Basophils Percent Auto 0.5 % (0.2-1.2); Eosinophils Absolute Auto 0.6 K/mm3 (0-0.3); Eosinophils Percent Auto 8.1 % (0-4.4); Hematocrit 33.4 % (42.0-52.0); Hemoglobin 10.9 g/dL (14.0-18.0); Immature Granulocyte Absolute 0.06 K/mm3 (0.00-0.031); Immature Granulocyte Percent A 0.8 % (0-0.5); Lymphocytes Absolute Auto 0.27 K/mm3 (0.9-3.2); Lymphocytes Percent Auto 3.4 % (18.3-44.2); Mean Corpuscular HGB Conc 32.6 g/dl (32-36); Mean Corpuscular Hemoglobin 30.9 pg (26-34); Mean Corpuscular Volume 94.6 fl (80-100); Mean Platelet Volume 9.1 fl (7.4-10.4); Monocytes Absolute Auto 0.8 K/mm3 (0.1-0.6); Monocytes Percent Auto 10.4 % (2.6-8.5); Neutrophils Absolute Auto 6.1 K/mm3 (1.3-6.7); Neutrophils Percent Auto 76.8 % (45.5-73.1); Platelet Count Result 252 k/mm3 (150-375); Red Blood Count 3.53 M/mm3 (4.6-6.20); Red Cell Distribution Width 14.1 % (11.5-14.5); White Blood Count 7.9 K/mm3 (4.5-10.0)
[2020-10-04 06:23] LABS: Alanine Aminotransferase 31 U/L (4-50); Albumin Level 2.9 g/dL (3.5-5.1); Alkaline Phosphatase 71 U/L (38-126); Anion Gap 4 mmol/L (8-16); Aspartate Amino Transferase 35 U/L (17-59); Bilirubin,Total 0.4 mg/dL (0.2-1.3); Blood Urea Nitrogen 24 mg/dL (9-20); Calcium 8.3 mg/dL (8.4-10.2); Carbon Dioxide 30 mmol/L (22-30); Chloride 102 mmol/L (98-107); Estimated CRCL calculation 51 ml/min; Estimated Glomerular Filt Rate > 60; Glucose 171 mg/dL (75-110); Potassium 4.5 mmol/L (3.4-5.0); Sodium 136 mmol/L (137-145)
[2020-10-04] MEDS: SERTRALINE HCL 50 MG TABLET 100 MG FEED TUBE (09:30)
[2020-10-04 12:00] VITALS: O2SAT 93
--- NOTE | 2020-10-04 12:22 | PM.PNCARD ---
Progress Note: A&P Assessment and Plan (1) Paroxysmal supraventricular tachycardia: Code(s): I47.1 - Supraventricular tachycardia Status: Acute Assessment and Plan: Probably related to respiratory status including worsening chronic right lung disease, right pleural effusion, and possible pneumonia. Restored sinus rhythm with Adenosine in ED. No recurrence. Started on Metoprolol tartate 12.5 mg BID with parameters to prevent recurrence, however, that is discontinued due to hypotension. BP stabilized. (2) CHF (congestive heart failure): Qualifiers: Heart failure chronicity: unspecified Heart failure type: unspecified Qualified Code(s): I50.9 - Heart failure, unspecified Code(s): I50.9 - Heart failure, unspecified Status: Acute Assessment and Plan: He does not appear to be in heart failure and looks dry. No prior cardiac history. Has right pleural effusion which could be related to pneumonia and has lymphadenopathy s/o lymphoma. Had right thoracentesis for diagnostic and therapeutic purposes and removed 1 liter of fluid; has WBC and RBC in fluids, awaiting cytology. (3) Acute respiratory failure with hypoxia: Code(s): J96.01 - Acute respiratory failure with hypoxia Status: Acute Assessment and Plan: On Oxygen. Management per hospitalist. Subjective Date/time seen: 10/04/20 12:22 Patient is alert but nonverbal. Exam Const: General: patient obtunded and other (nonverbal) Resp: Auscultation: no crackles, no rales, no rhonchi, no wheezes and diminished lung sounds Cardio: Jugular venous distension: no JVD Rate: regular rate Rhythm: regular rhythm Heart sounds: no murmurs GI: GI Palp: No abdominal tenderness and Yes Soft to palpation Extrem: Right lower extremity: no edema Left lower extremity: no edema Objective Data Vital Signs Vital Signs: Vital Signs - 24 hr 10/03/20 14:00 10/03/20 17:26 10/03/20 17:27 Temperature 98.5 F Pulse Rate 89 90 94 Respiratory Rate 16 36 H 40 H Blood Pressure 109/60 128/99 H 137/65 Pulse Oximetry 99 92 92 10/03/20 21:00 10/03/20 21:52 10/04/20 05:35 Temperature 97.9 F 97.2 F L Pulse Rate 88 88 65 Respiratory Rate 16 16 20 Blood Pressure 106/42 L 124/60 Pulse Oximetry 93 93 99 Intake/Output Intake/Output: Intake & Output 10/01/20 10/02/20 10/03/20 10/04/20 23:59 23:59 23:59 23:59 Intake Total 300 2800 1740 Output Total 1000 Balance 300 1800 1740 Meds/Results Medications: Active Medications Generic Name Dose Route Start Last Admin Trade Name Freq PRN Reason Stop Dose Admin Ampicillin Sodium/Sulbactam Sodium 3 gm in 100 mls @ 200 mls/hr 10/03/20 12:00 10/04/20 04:53 Unasyn 3 Gm/Ns 100 Ml IVPB 200 mls/hr Q6HR MARQUITA Administration Vancomycin HCl 1,500 mg in 500 mls @ 333.333 mls/hr 10/03/20 16:00 10/04/20 09:29 Vancomycin 1,500 Mg/D5w 500 Ml IVPB 150 mls/hr Q18H MARQUITA Administration Lansoprazole 30 mg 10/03/20 10:10 10/04/20 04:56 Lansoprazole Oral Susp 30 Mg/10 Ml Oral.Susp FEED TUBE 30 mg DAILY@0630 MARQUITA Administration Lorazepam 1 mg 10/02/20 20:38 10/02/20 21:34 Lorazepam Inj (*Crx) 2 Mg/Ml Vial IV PUSH 1 mg Q6H PRN Administration Anxiety Miconazole Nitrate 1 applic 10/02/20 09:00 10/04/20 09:30 Miconazole 2% Antifungal Ointment 56 Gm TOPICAL 1 applic Q12HR MARQUITA Administration Morphine Sulfate 2 mg 10/02/20 20:38 10/03/20 06:01 Morphine Sulfate (*Crx) 2 Mg/Ml Inj IV PUSH 2 mg Q4H PRN Administration Pain Rated 7-10 Sertraline HCl 100 mg 10/04/20 09:00 10/04/20 09:30 Sertraline Hcl 50 Mg Tablet FEED TUBE 100 mg DAILY MARQUITA Administration Radiology Results: ITS Impressions Contrast Injection Evaluation 10/02/20 07:42 Impression: 1: Gastrostomy tube in expected position.. 2: Right basilar airspace disease, suspicious for pneumonia. Consider correlation with chest x-ray. 3: Small right
--- NOTE | 2020-10-04 16:14 | PM.IMPN ---
Progress Note: A&P Assessment and Plan (1) Pleural effusion: Code(s): J90 - Pleural effusion, not elsewhere classified Status: Acute Assessment and Plan: Significant pleural effusion seen in the right lung -wide differential including infection, CHF, malignancy -thoracentesis showed RBC and neutrophils, await albumin, ldh and amylase -off o2 -await results and adjust treatment (2) Paroxysmal supraventricular tachycardia: Code(s): I47.1 - Supraventricular tachycardia Status: Acute Assessment and Plan: Resolved -patient was placed on metoprolol 12.5 mg b.i.d. but had hypotension in this was discontinued -adenosine was given in the ER, no recurrence -await echo, although I am not sure how cooperative he will be with this -cardiology consulted (3) Lymphadenopathy: Code(s): R59.1 - Generalized enlarged lymph nodes Status: Acute Assessment and Plan: Chest and abdominal lymphadenopathy suspicious for possible lymphoma noted on CT -I spoke with Keely who is a neice since minerva has memory problems. She does not want further work up with this since they would not want him to undergo tx. She is going to speak with minerva again aboutt his but she is not in great health either. 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 Not able to review the information with the patient. (4) Chronic GERD: Code(s): K21.9 - Gastro-esophageal reflux disease without esophagitis Status: Chronic Assessment and Plan: Continue PPI therapy (5) BPH (benign prostatic hyperplasia): Code(s): N40.0 - Benign prostatic hyperplasia without lower urinary tract symptoms Status: Chronic Assessment and Plan: Chronic (6) Complaint associated with gastric tube: Code(s): R68.89 - Other general symptoms and signs; Z93.1 - Gastrostomy status Status: Acute Assessment and Plan: No blood noted from tube today nor is pt coughing up blood. -reported blood on the sheet at the [facility] but no further details -Continue PPI -CT confirms placement (7) Acute respiratory failure with hypoxia: Code(s): J96.01 - Acute respiratory failure with hypoxia Status: Acute Assessment and Plan: Likely d/t pleural effusion as stated above. -resolved, off o2 (8) Person under investigation for COVID-19: Code(s): Z20.822 - Contact with and (suspected) exposure to COVID-19 Status: Acute Assessment and Plan: Negative covid test -no fevers (9) CHF (congestive heart failure): Qualifiers: Heart failure chronicity: unspecified Heart failure type: unspecified Qualified Code(s): I50.9 - Heart failure, unspecified Code(s): I50.9 - Heart failure, unspecified Status: Acute Assessment and Plan: Await echo (10) Bacteremia: Code(s): R78.81 - Bacteremia Status: Acute Assessment and Plan: 1/2 blood cultures positive for coag neg staff -likely contaminate, stopping vanc. Additional Plan elevated d-dimer. Pt has IVC filter. Hx of bleeding. No further w/u or tx needed Subjective Date/time seen: 10/04/20 16:14 Interval history: Pt is a 84-year-old nonverbal patient here for hypoxia. Patient was seen today and is unable to communicate. Nurse states he has been stable. I spoke to nijustyn Riggs about plan of care and prognosis. , Minerva with memory issues and Keely is going to relay information. Exam Narrative: Exam Narrative: General: Elderly patient resting comfortably in bed in NAD HEENT: normocephalic Neck: supple Neuro: Alert but not oriented or cooperative. Appears to move all limbs simultaneously CV: RRR on exam but hard to auscultate since he can be combative. Resp: mildly decreased breath sounds but much better today. Off o2 Abd: Protuberant stomach but is soft. No pain to palpation. Posit
[2020-10-05] VITALS: BP 121/52; PULSE 90; RESP 18; TEMP 36.7; O2SAT 97
[2020-10-05] MEDS: LANSOPRAZOLE ORAL SUSP 30 MG/10 ML ORAL.SUSP FEED TUBE (05:17)
[2020-10-05] MEDS: AMPICILLIN SULB 3 GM/NS 100 ML 3 GM/100 ML VIAL IVPB ×4 (05:17→23:24)
[2020-10-05 06:00] VITALS: BP 139/81; PULSE 79; RESP 18; TEMP 36.4; O2SAT 96
[2020-10-05 06:32] LABS: Hemoglobin 12.3 g/dL (14.0-18.0); Mean Corpuscular HGB Conc 32.4 g/dl (32-36); Mean Corpuscular Hemoglobin 31.5 pg (26-34); Mean Corpuscular Volume 97.2 fl (80-100); Mean Platelet Volume 9.6 fl (7.4-10.4); Platelet Count Result 202 k/mm3 (150-375); Red Blood Count 3.91 M/mm3 (4.6-6.20); Red Cell Distribution Width 14.2 % (11.5-14.5); White Blood Count 6.1 K/mm3 (4.5-10.0)
[2020-10-05 06:48] LABS: Anion Gap 6 mmol/L (8-16); Blood Urea Nitrogen 20 mg/dL (9-20); Calcium 8.1 mg/dL (8.4-10.2); Carbon Dioxide 27 mmol/L (22-30); Chloride 103 mmol/L (98-107); Estimated CRCL calculation 64 ml/min; Estimated Glomerular Filt Rate > 60; Glucose 100 mg/dL (75-110); Potassium 4.3 mmol/L (3.4-5.0); Sodium 136 mmol/L (137-145)
[2020-10-05 07:11] LABS: CRP 12.4 mg/dL (<1.0)
--- NOTE | 2020-10-05 08:02 | PM.PNCARD ---
Progress Note: A&P Assessment and Plan (1) Paroxysmal supraventricular tachycardia: Code(s): I47.1 - Supraventricular tachycardia Status: Acute Assessment and Plan: Probably related to respiratory status including worsening chronic right lung disease, right pleural effusion, and possible pneumonia. Restored sinus rhythm with Adenosine in ED. No recurrence. Started on Metoprolol tartate 12.5 mg BID with parameters to prevent recurrence, however, that is discontinued due to hypotension. BP stabilized. Will sign off. Please call with any questions/concerns or change in status. (2) CHF (congestive heart failure): Qualifiers: Heart failure chronicity: unspecified Heart failure type: unspecified Qualified Code(s): I50.9 - Heart failure, unspecified Code(s): I50.9 - Heart failure, unspecified Status: Acute Assessment and Plan: He does not appear to be in heart failure and looks dry. No prior cardiac history. Has right pleural effusion which could be related to pneumonia and has lymphadenopathy s/o lymphoma. Had right thoracentesis for diagnostic and therapeutic purposes and removed 1 liter of fluid; has WBC and RBC in fluids, awaiting cytology. (3) Acute respiratory failure with hypoxia: Code(s): J96.01 - Acute respiratory failure with hypoxia Status: Acute Assessment and Plan: On Oxygen. Management per hospitalist. Subjective Date/time seen: 10/05/20 08:02 Patient is alert, non-verbal. Exam Const: General: patient obtunded and other (nonverbal) Resp: Auscultation: no crackles, no rales, no rhonchi, no wheezes and diminished lung sounds Cardio: Jugular venous distension: no JVD Rate: regular rate Rhythm: regular rhythm Heart sounds: no murmurs GI: GI Palp: No abdominal tenderness and Yes Soft to palpation Extrem: Right lower extremity: no edema Left lower extremity: no edema Objective Data Vital Signs Vital Signs: Vital Signs - 24 hr 10/04/20 12:00 10/05/20 00:00 10/05/20 06:00 Temperature 98.0 F 97.6 F Pulse Rate 90 79 Respiratory Rate 18 18 Blood Pressure 121/52 L 139/81 Pulse Oximetry 93 97 96 Intake/Output Intake/Output: Intake & Output 10/02/20 10/03/20 10/04/20 10/05/20 23:59 23:59 23:59 23:59 Intake Total 300 2800 3100 920 Output Total 1000 Balance 300 1800 3100 920 Meds/Results Medications: Active Medications Generic Name Dose Route Start Last Admin Trade Name Freq PRN Reason Stop Dose Admin Ampicillin Sodium/Sulbactam Sodium 3 gm in 100 mls @ 200 mls/hr 10/03/20 12:00 10/05/20 05:45 Unasyn 3 Gm/Ns 100 Ml IVPB Infused Q6HR MARQUITA Infusion Lansoprazole 30 mg 10/03/20 10:10 10/05/20 05:17 Lansoprazole Oral Susp 30 Mg/10 Ml Oral.Susp FEED TUBE 30 mg DAILY@0630 MARQUITA Administration Lorazepam 1 mg 10/02/20 20:38 10/02/20 21:34 Lorazepam Inj (*Crx) 2 Mg/Ml Vial IV PUSH 1 mg Q6H PRN Administration Anxiety Miconazole Nitrate 1 applic 10/02/20 09:00 10/04/20 20:00 Miconazole 2% Antifungal Ointment 56 Gm TOPICAL 1 applic Q12HR MARQUITA Administration Morphine Sulfate 2 mg 10/02/20 20:38 10/03/20 06:01 Morphine Sulfate (*Crx) 2 Mg/Ml Inj IV PUSH 2 mg Q4H PRN Administration Pain Rated 7-10 Sertraline HCl 100 mg 10/04/20 09:00 10/04/20 09:30 Sertraline Hcl 50 Mg Tablet FEED TUBE 100 mg DAILY MARQUITA Administration Radiology Results: ITS Impressions Contrast Injection Evaluation 10/02/20 07:42 Impression: 1: Gastrostomy tube in expected position.. 2: Right basilar airspace disease, suspicious for pneumonia. Consider correlation with chest x-ray. 3: Small right pleural effusion. Chest CTA 10/02/20 09:46 IMPRESSION: 1. No pulmonary embolus. 2. Chest and abdominal lymphadenopathy suspicious for malignancy such as lymphoma. 3. Partially visualized 1.3 cm right kidney mass, which may be a hemorrhagic cyst or less likely a solid neoplasm.
[2020-10-05] MEDS: SERTRALINE HCL 50 MG TABLET 100 MG FEED TUBE (09:28)
--- NOTE | 2020-10-05 10:00 | PC.NURSE ---
spoke at length with pt's family member and reviewed plan of care
--- NOTE | 2020-10-05 12:16 | PM.IMPN ---
Progress Note: A&P Assessment and Plan (1) Pleural effusion: Code(s): J90 - Pleural effusion, not elsewhere classified Status: Acute Assessment and Plan: Significant pleural effusion seen in the right lung -wide differential including infection, CHF, malignancy -echo does not show significant HF -thoracentesis showed RBC and neutrophils, await protein, ldh and amylase -Crackles today, repeat CXR. May consider lasix depending on the CXR -off o2 -await results and adjust treatment -Spoke to Keely, family member about plan of care 10/04/20 (2) Paroxysmal supraventricular tachycardia: Code(s): I47.1 - Supraventricular tachycardia Status: Acute Assessment and Plan: Resolved -patient was placed on metoprolol 12.5 mg b.i.d. but had hypotension in this was discontinued -adenosine was given in the ER, no recurrence -echo reviewed -cardiology consulted (3) Lymphadenopathy: Code(s): R59.1 - Generalized enlarged lymph nodes Status: Acute Assessment and Plan: Chest and abdominal lymphadenopathy suspicious for possible lymphoma noted on CT -I spoke with Keely who is a neice since mike has memory problems on 10/04/20. She does not want further work up with this since they would not want him to undergo tx. She is going to speak with mike again about his but she is not in great health either. 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 Not able to review the information with the patient. (4) Chronic GERD: Code(s): K21.9 - Gastro-esophageal reflux disease without esophagitis Status: Chronic Assessment and Plan: Continue PPI therapy (5) BPH (benign prostatic hyperplasia): Code(s): N40.0 - Benign prostatic hyperplasia without lower urinary tract symptoms Status: Chronic Assessment and Plan: Chronic (6) Complaint associated with gastric tube: Code(s): R68.89 - Other general symptoms and signs; Z93.1 - Gastrostomy status Status: Acute Assessment and Plan: No blood noted from tube today nor is pt coughing up blood. -reported blood on the sheet at the [facility] but no further details -Continue PPI -CT confirms placement (7) Acute respiratory failure with hypoxia: Code(s): J96.01 - Acute respiratory failure with hypoxia Status: Acute Assessment and Plan: Likely d/t pleural effusion as stated above. -resolved, off o2 (8) Person under investigation for COVID-19: Code(s): Z20.822 - Contact with and (suspected) exposure to COVID-19 Status: Acute Assessment and Plan: Negative covid test -no fevers (9) CHF (congestive heart failure): Qualifiers: Heart failure chronicity: unspecified Heart failure type: unspecified Qualified Code(s): I50.9 - Heart failure, unspecified Code(s): I50.9 - Heart failure, unspecified Status: Acute Assessment and Plan: Repeat CXR -Appears euvolemic on exam. -Pt does have diastolic disfunction. Echo reads: 1. Technically suboptimal study due to poor sonographic images. Limited study as no parasternal or subcostal images. 2. Left ventricular chamber dimension is normal. 3. Left ventricular systolic function is normal, estimated at 55-60%. However regional wall motion abnormality cannot be fully assessed without parasternal images. 4. There is moderately increased left ventricular wall thickness. 5. The left ventricular diastolic function is abnormal. 6. E/e' 14 is mildly elevated. 7. The aortic valve is not well visualized. 8. The mitral valve has not well visualized and severely calcified annulus. (10) Bacteremia: Code(s): R78.81 - Bacteremia Status: Acute Assessment and Plan: 1/2 blood cultures positive for coag neg staff -likely contaminate, vancomycin discontinued. Additional Plan elevated d-dimer. Pt ta
--- NOTE | 2020-10-05 13:04 | PCNFU ---
Nutrition Follow-Up Complete: Altered Nutrition Related Laboratory Values as related to Hyponatremia as evidenced by Na 130 Goal: Na level-WNL Progressing towards goal. We will continue current goal. Pt current nutrition is Jevity 1.5 310 ml 5 x daily. Nutrition recommendation:Agree Last recorded weight is 77 kg. Bowel Motility:+BM noted 10/05 Labs Reviewed:Na 136 Meds Noted:Prevacid, Zoloft Additional Notes: Nutrition follow up. Patient is currently on Jevity 1.5 310 ml 5 x daily with 100 ml water flush q 4 hours. Nursing states patient abdomen is distended. Current tube feedings are providing patient with 2325 kcals/99 gms protein/1178 ml water. Monitoring: Will continue to monitor every Thursday and Thursday
[2020-10-05 14:00] VITALS: BP 128/67; PULSE 79; RESP 18; TEMP 36.4; O2SAT 90
--- NOTE | 2020-10-05 15:22 | PC.NURSE ---
call to pharm to communicate change in lasix dose
[2020-10-05] MEDS: FUROSEMIDE INJ 40 MG/4 ML VIAL 20 MG IV PUSH (15:27)
[2020-10-05 21:22] VITALS: BP 133/56; PULSE 92; RESP 16; TEMP 36.8; O2SAT 93
[2020-10-06] MEDS: AMPICILLIN SULB 3 GM/NS 100 ML 3 GM/100 ML VIAL IVPB ×2 (05:42→12:38)
[2020-10-06] MEDS: LANSOPRAZOLE ORAL SUSP 30 MG/10 ML ORAL.SUSP FEED TUBE (05:47)
[2020-10-06 05:55] VITALS: BP 114/90; PULSE 86; RESP 16; TEMP 36.7; O2SAT 90
[2020-10-06 06:05] LABS: Basophils Percent Auto 0.7 % (0.2-1.2); Eosinophils Absolute Auto 0.7 K/mm3 (0-0.3); Eosinophils Percent Auto 11.3 % (0-4.4); Hematocrit 35.3 % (42.0-52.0); Hemoglobin 11.5 g/dL (14.0-18.0); Immature Granulocyte Absolute 0.06 K/mm3 (0.00-0.031); Lymphocytes Absolute Auto 0.38 K/mm3 (0.9-3.2); Lymphocytes Percent Auto 6.3 % (18.3-44.2); Mean Corpuscular HGB Conc 32.6 g/dl (32-36); Mean Corpuscular Hemoglobin 30.9 pg (26-34); Mean Corpuscular Volume 94.9 fl (80-100); Mean Platelet Volume 9.3 fl (7.4-10.4); Monocytes Absolute Auto 0.8 K/mm3 (0.1-0.6); Monocytes Percent Auto 12.8 % (2.6-8.5); Neutrophils Absolute Auto 4.1 K/mm3 (1.3-6.7); Neutrophils Percent Auto 67.9 % (45.5-73.1); Platelet Count Result 244 k/mm3 (150-375); Red Blood Count 3.72 M/mm3 (4.6-6.20); Red Cell Distribution Width 13.8 % (11.5-14.5); White Blood Count 6.1 K/mm3 (4.5-10.0)
[2020-10-06 06:21] LABS: Anion Gap 2 mmol/L (8-16); Blood Urea Nitrogen 20 mg/dL (9-20); Calcium 8.2 mg/dL (8.4-10.2); Carbon Dioxide 33 mmol/L (22-30); Chloride 103 mmol/L (98-107); Estimated CRCL calculation 64 ml/min; Estimated Glomerular Filt Rate > 60; Glucose 86 mg/dL (75-110); Potassium 4.2 mmol/L (3.4-5.0); Sodium 138 mmol/L (137-145)
[2020-10-06 06:30] LABS: NT Pro B Type Natriuretic Pept 3370 PG/ML (5-100)
[2020-10-06] MEDS: SERTRALINE HCL 50 MG TABLET 100 MG FEED TUBE (08:50)
--- NOTE | 2020-10-06 13:00 | PM.DS ---
DS: Admitting Diagnosis Admitting Diagnosis Admitting Diagnosis: blood from the gtube DS: Discharge Diagnosis Discharge Diagnosis (1) Pleural effusion: Code(s): J90 - Pleural effusion, not elsewhere classified Status: Acute Assessment and Plan: Mod pleural effusion seen in the right lung on admission -patient required oxygen until the thoracentesis. After the thoracentesis, he no longer required oxygen -wide differential including infection, CHF, malignancy -echo does not show significant HF -pathology report reviewed which did not show any over malignant cells and flow cytometry was negative for pathology -thoracentesis showed RBC and neutrophils, await protein, ldh and amylase -I spoke with the family and since patient is off oxygen, repeat chest x-ray does not show significant recurrence, and light's criteria will likely not change treatment, patient was discharged before all labs were back. If he starts requiring oxygen again, a chest x-ray should be done at the facility and if it has reaccumulated, patient should see pulmonology outpatient or come back to emergency room if in distress -Spoke to Keely, family member about plan of care 10/06/20 (2) Paroxysmal supraventricular tachycardia: Code(s): I47.1 - Supraventricular tachycardia Status: Acute Assessment and Plan: Resolved, noted on admission -patient was placed on metoprolol 12.5 mg b.i.d. but had hypotension in this was discontinued -adenosine was given in the ER, no recurrence -echo reviewed -cardiology has reviewed the case, no further workup (3) Lymphadenopathy: Code(s): R59.1 - Generalized enlarged lymph nodes Status: Acute Assessment and Plan: Chest and abdominal lymphadenopathy suspicious for possible lymphoma noted on CT -I spoke with Keely who is a neice since mike has memory problems on 10/04/20. She does not want further work up with this since they would not want him to undergo tx. 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 Not able to review the information with the patient. (4) Chronic GERD: Code(s): K21.9 - Gastro-esophageal reflux disease without esophagitis Status: Chronic Assessment and Plan: Continue PPI therapy (5) BPH (benign prostatic hyperplasia): Code(s): N40.0 - Benign prostatic hyperplasia without lower urinary tract symptoms Status: Chronic Assessment and Plan: Chronic (6) Complaint associated with gastric tube: Code(s): R68.89 - Other general symptoms and signs; Z93.1 - Gastrostomy status Status: Acute Assessment and Plan: No blood noted from tube today nor is pt coughing up blood. -reported blood on the sheet at the [place] but no further details -Continue PPI -CT confirms placement (7) Acute respiratory failure with hypoxia: Code(s): J96.01 - Acute respiratory failure with hypoxia Status: Acute Assessment and Plan: Likely d/t pleural effusion as stated above. -resolved, off o2 (8) Person under investigation for COVID-19: Code(s): Z20.822 - Contact with and (suspected) exposure to COVID-19 Status: Acute Assessment and Plan: Negative covid test -no fevers (9) CHF (congestive heart failure): Qualifiers: Heart failure chronicity: unspecified Heart failure type: unspecified Qualified Code(s): I50.9 - Heart failure, unspecified Code(s): I50.9 - Heart failure, unspecified Status: Acute Assessment and Plan: Repeat CXR -Appears euvolemic on exam. -Pt does have diastolic disfunction. Echo reads: 1. Technically suboptimal study due to poor sonographic images. Limited study as no parasternal or subcostal images. 2. Left ventricular chamber dimension is normal. 3. Left ventricular systolic function is normal, estimated at 55-60%. However regional wall motion abnormality cannot
[2020-10-06 14:10] VITALS: BP 154/93; PULSE 87; RESP 18; TEMP 36.2; O2SAT 93
[2020-10-06 15:40] VITALS: O2SAT 91
[2020-10-07 04:42] LABS: Amylase, Pleural Fluid 42 U/L
[2020-10-07 20:58] LABS: LDH Pleural Fluid 176 U/L
[2020-10-10 13:59] LABS: Total Protein Pleural Fluid 3.3 g/dL
[2020-10-11 11:43] LABS: Albumin Pleural Fluid 1.5 g/dL
--- NOTE | 2020-10-11 13:58 | PC.NURSE ---
Pleural fluid protein, albumin, LDH, amylase are all WNL.
--- NOTE | 2020-11-16 09:20 | PC.NURSE ---
pleural fluid cx is negative
== END 2020-10-06 16:50 | DRG 291 ==
LOC: ANHED 07:07 → ANHIMU 11:13 → ANH2MED 10-03 10:30 → ANHIMU 10-10 15:21
PROVIDERS: Internal Medicine Cardiovascular Disease; Nurse Practitioner; Admitting Provider Family Medicine; Emergency Provider Emergency Medicine; PCP Family Medicine; Visit Provider Physician Assistant
DX: I50.31 Acute diastolic (congestive) heart failure (principal); J96.01 Acute respiratory failure with hypoxia; J91.8 Pleural effusion in other conditions classified elsewhere; I47.1 Supraventricular tachycardia; R78.81 Bacteremia; R59.1 Generalized enlarged lymph nodes; I69.320 Aphasia following cerebral infarction; K21.9 Gastro-esophageal reflux disease without esophagitis; N40.0 Benign prostatic hyperplasia without lower urinary tract symptoms; Z20.822 Contact with and (suspected) exposure to COVID-19; M40.209 Unspecified kyphosis, site unspecified; R68.89 Other general symptoms and signs; Z93.1 Gastrostomy status; Z98.2 Presence of cerebrospinal fluid drainage device; Z87.891 Personal history of nicotine dependence
CPT/HCPCS: 32555; 36415; 36600; 49465; 71045; 71275; 80048; 80076; 82040; 82042; 82150; 82247; 82465; 82805; 83605; 83615; 83880; 84157; 84443; 84484; 85025; 85027; 85380; 85610; 85730; 86140; 87015; 87040; 87070; 87075; 87077; 87102; 87116; 87186; 87205; 87206; 88104; 88108; 88184; 88185; 88305; 89051; 93005; 93306; 96365; 96367; 96375; 99291; A9270; C9113; C9803; G0378; J0153; J0295; J0456; J0696; J1940; J2060; J2270; J3370; J7030; Q9967; U0003

== ENCOUNTER 2020-10-20 06:12 | Emergency (ER) | payer MEDICARE, BC, SELFPAY ==
--- NOTE | ~2020-10-20 | XR_ITS ---
EXAMINATION: XR G tube replacement w image INDICATION: G-tube replacement TECHNIQUE: Portable supine view of the abdomen is obtained. COMPARISON: 10/02/2020 FINDINGS: The gastrostomy projects in the body of the stomach. Injected contrast material opacifies t he stomach and proximal small bowel. The bowel gas pattern is normal. An inferior vena cava filter is noted. There is a large volume of rectal stool. IMPRESSION: 1. Gastrostomy tube in expected position. Reviewed, dictated and finalized at location A. OL [employer] DEVELOPER
[2020-10-20 06:10] VITALS: BP 164/66; PULSE 79; RESP 20; TEMP 36.1; O2SAT 95
--- NOTE | 2020-10-20 06:24 | ED.GENADULT ---
HPI - General Adult General Chief complaint: Unspecified Stated complaint: G tube displaced Time Seen by Provider: 10/20/20 06:23 History of Present Illness HPI narrative: Patient is an 84-year-old male who presents ER with need for replacement of G-tube. Patient is nonverbal and somehow removed it last night. Staff found out today that it was no longer attached from the camera given the feeding. Site appears normal without signs of infection. No bleeding. Related Data Home Medications Medication Instructions Recorded Confirmed Acidophilus Probiotic 250 mg FEEDING TUBE DAILY 10/02/20 10/02/20 Aspir-81 81 mg FEEDING TUBE DAILY 10/02/20 10/02/20 Mucinex DM 200 mg FEEDING TUBE QID PRN 10/02/20 10/02/20 albuterol sulfate 90 mcg INHALATION Q4H PRN 10/02/20 10/02/20 famotidine 20 mg FEEDING TUBE DAILY 10/02/20 10/02/20 finasteride 5 mg FEEDING TUBE DAILY 10/02/20 10/02/20 furosemide 40 mg FEEDING TUBE DAILY 10/02/20 10/02/20 levalbuterol HCl 0.63 mg INHALATION QID 10/02/20 10/02/20 sertraline 100 mg FEEDING TUBE DAILY 10/02/20 10/02/20 W8-D2-N2-Q8-O0-nupd-met-choln ml PO 10/20/20 [Geritol Tonic with Ferrex 18] guaifenesin 200 mg PO Q4H PRN 10/20/20 lactose-reduced food with fibr ea 10/20/20 [Jevity 1.5 Edgar] propylene glycol [Systane Balance] 1 drp OPHTHALMIC (EYE) DAILY PRN 10/20/20 Allergies Allergy/AdvReac Type Severity Reaction Status Date / Time meperidine Allergy Unknown Unknown Verified 10/20/20 06:21 Review of Systems Review of Systems: ROS unobtainable: Yes unobtainable due to medical condition PMFSH Past Medical History Medical History (Updated 10/20/20 @ 06:37 by Vu Fraga MD) BPH (benign prostatic hyperplasia) Chronic GERD CVA (cerebral vascular accident) Surgical History Surgical History (Updated 10/02/20 @ 14:18 by Sharona Boyle NP) History of total hip replacement Right hip replacement hardware was seen on an old x-ray last year. Status post insertion of percutaneous endoscopic gastrostomy (PEG) tube Family History Family History Daughter Pancreatic cancer Social History Social History (Updated 10/02/20 @ 14:09 by Sharona Boyle NP) Social History: [facility]. The patient is noncommunicative due to his stroke. The knees is his durable power assistant city attorney for healthcare. The niece is also taking care the patient's Minerva. The patient has a living will which is a full code. I had a long discussion with the niece who is the power assistant city attorney concerning the full code. The family is going to me and have a discussion about code status. The patient used to smoke according to the niece. The patient was an auto electrical technician at [employer] and the only had the 1 child that has from pancreatic cancer. There is no other family and the power assistant city attorney is the niece to his . Smoking status: Former smoker Tobacco type: cigarettes Alcohol intake: never Substance use: never Gender identity (if verbalized by the patient): Male Spiritual care concerns: No Exam Narrative: Exam Narrative: GENERAL: Chronically ill-appearing, well-nourished, and in no acute distress. HEAD: Normocephalic, atraumatic. CHEST: Clear to auscultation. No respiratory distress. HEART: Regular rate and rhythm. Normal peripheral pulses. ABDOMEN: Soft, nontender, nondistended. Normal appearing g-tube site in LUQ w/o drainage/infection. NEURO: Awake and alert. Moves extermities well. Course Vital Signs Vital signs: Vital Signs Temperature 97.0 F L 10/20/20 06:10 Pulse Rate 79 10/20/20 06:10 Respiratory Rate 20 10/20/20 06:10 Blood Pressure 164/66 H 10/20/20 06:10 Pulse Oximetry 95 10/20/20 06:10 Temperature 97.0 F L 10/20/20 06:10 Pulse Rate 79 10/20/20 06:10 Respiratory Rate 20 10/20/20 06:10 Blood Pressure 164/66 H 10/20/20 06:10 Pulse Oximetry 95 10/20/20 06:10 Procedur
--- NOTE | 2020-10-20 06:42 | PC.NURSE ---
ERP placed a 16 F g-tube, patient tolerated well. Verified placement with xray and dye.
[2020-10-20 08:00] VITALS: BP 154/70; PULSE 70; RESP 14; O2SAT 99
[2020-10-20 09:45] VITALS: BP 140/59; PULSE 80; RESP 14; O2SAT 98
== END 2020-10-20 09:47 ==
LOC: ANHED 06:39
PROVIDERS: Emergency Provider Emergency Medicine; Family Provider Family Medicine; PCP Family Medicine
DX: Z43.1 Encounter for attention to gastrostomy (principal); N40.0 Benign prostatic hyperplasia without lower urinary tract symptoms; K21.9 Gastro-esophageal reflux disease without esophagitis; I69.328 Other speech and language deficits following cerebral infarction; Z96.641 Presence of right artificial hip joint; Z87.891 Personal history of nicotine dependence; Z79.82 Long term (current) use of aspirin
CPT/HCPCS: 49450; 99284

== ENCOUNTER 2020-11-01 11:09 | Inpatient (IN) | payer MEDICARE, BC, SELFPAY ==
[2020-11-01] VITALS (12 sets, daily range): BP systolic 102–162; BP diastolic 45–95; PULSE 90–106; RESP 16–30; TEMP 36.6–37.2; O2SAT 89–100
--- NOTE | ~2020-11-01 | XR_ITS ---
EXAMINATION: XR G tube evaluation w imaging DATE: 11/03/2020 06:45 INDICATION: Gastrostomy tube placement. TECHNIQUE: A supine view of the abdomen on 2 radiographs was obtained. COMPARISON: Chest CT 10/02/2020 FINDINGS: The lower abdomen and right lateral aspect of the abdomen are excluded. There are no dilate d loops of bowel. There is contrast in the stomach. The gastrostomy tube itself is not well visualize d. There is a filter in the inferior vena cava. There are moderate-sized right and small left pleural effusions. There are airspace opacities at the lung bases. IMPRESSION: 1. Contrast in the stomach suggesting correct positioning of the gastrostomy tube. The tube itself is not well visualized. 2. Moderate-sized right and small left pleural effusions. 3. Airspace opacities at the lung bases, consistent with atelectasis versus pneumonia. Reviewed, dictated and finalized at location A. ET SOLOIST IMPRESSION: 1. Contrast in the stomach suggesting correct positioning of the gastrostomy tu be. The tube itself is not well visualized. 2. Moderate-sized right and small left pleural effusions. 3. Airspace opacities at the lung bases, consistent with atelectasis versus pne umonia.
--- NOTE | ~2020-11-01 | XR_ITS ---
EXAMINATION: XR chest 1V portable DATE: 11/01/2020 11:49 INDICATION: Fever and weakness and confusion. TECHNIQUE: A single frontal view of the chest was obtained. COMPARISON: Chest single view 10/05/2020 FINDINGS: The patient is rotated to his right. The lateral aspect of right lung is excluded. Skinfold s overlie left hemithorax. There are interstitial opacities in the visualized portion of right lung. No pleural effusion or pneumothorax. The heart size is normal. There is a ventriculoatrial shunt with tip in superior vena cava. IMPRESSION: 1. Interstitial opacities in the visualized portion of right lung, consistent with mild pulmonary kleber ma versus chronic lung disease. Sensitivity is decreased by patient rotation and collimation. Reviewed, dictated and finalized at location A. ICAL RESOURCE NURSE IMPRESSION: 1. Interstitial opacities in the visualized portion of right lung, consistent w ith mild pulmonary edema versus chronic lung disease. Sensitivity is decreased by patient rotation and collimation.
--- NOTE | ~2020-11-01 | XR_ITS ---
EXAMINATION: XR chest 1V portable DATE: 11/03/2020 05:57 INDICATION: Pneumonia. TECHNIQUE: A single frontal view of the chest was obtained. COMPARISON: Chest single view 11/01/2020, chest CT 10/02/2020 FINDINGS: The right lateral costophrenic angle is excluded. There are moderate-sized right and small left pleural effusions. There are airspace opacities in right mid and lower lung zones and at left mal ng base. There is a diffuse interstitial pattern in the lungs. No pneumothorax. The heart size is nor mal. There is a ventriculoatrial shunt with tip in superior vena cava. There is an old healed fractur e of proximal left humerus. A gastrostomy tube is seen in expected position. IMPRESSION: 1. Moderate-sized right and small left pleural effusions. 2. Worsened diffuse lung disease, likely combination of mild pulmonary edema and basilar atelectasis versus pneumonia. Reviewed, dictated and finalized at location A. OS ARCHITECT IMPRESSION: 1. Moderate-sized right and small left pleural effusions. 2. Worsened diffuse lung disease, likely combination of mild pulmonary edema an d basilar atelectasis versus pneumonia.
--- NOTE | ~2020-11-01 | US_ITS ---
US renal BI 11/03/2020 14:34 Procedure: Realtime transabdominal ultrasound of the kidneys and bladder. Indication: Acute renal insufficiency Comparison: Ultrasound dated 08/15/2011 Findings: There are bilateral renal cysts measuring up to 2.4 cm on the right and 1.8 cm on the left. No solid masses, hydronephrosis or stones.. The right kidney measures 9.2 cm and left kidney measure s 11.6 cm. There is a Stevens catheter in the bladder. Impression: 1: Bilateral renal cysts. Reviewed, dictated and finalized at location A. IAL POLICE OFFICER Impression: 1: Bilateral renal cysts.
--- NOTE | 2020-11-01 11:24 | ECG_ITS ---
Measurements Intervals [place] Rate: 102 P: 59 MN: 148 QRS: -9 QRSD: 89 T: 85 QT: 328 QTc: 428 Interpretive Statements SINUS TACHYCARDIA CANNOT RULE OUT SEPTAL INFARCT, AGE INDETERMINATE BORDERLINE ST-T WAVE ABNORMALITY- ANTEROLAT/HIGH LAT LEADS BASELINE ARTIFACT- V3-V4 ABNORMAL ECG Electronically Signed On 11-01-2020 11:49:49 LAMINA SEARCHER by Kiet Garrison D.O.
[2020-11-01 12:19] LABS: Hematocrit 35.1 % (42.0-52.0); Hemoglobin 11.5 g/dL (14.0-18.0); Immature Platelet Fraction Pct 3.1 % (0.9-11.2); Mean Corpuscular HGB Conc 32.8 g/dl (32-36); Mean Corpuscular Hemoglobin 31.2 pg (26-34); Mean Corpuscular Volume 95.1 fl (80-100); Platelet Count Result 60 k/mm3 (150-375); Red Blood Count 3.69 M/mm3 (4.6-6.20); Red Cell Distribution Width 17.2 % (11.5-14.5)
[2020-11-01 12:30] LABS: Lactic Acid Reflex 3.7 mmol/L (0.7-2.1)
[2020-11-01 12:38] LABS: Alanine Aminotransferase 33 U/L (4-50); Albumin Level 3.4 g/dL (3.5-5.1); Alkaline Phosphatase 85 U/L (38-126); Anion Gap 5 mmol/L (8-16); Aspartate Amino Transferase 74 U/L (17-59); Bilirubin,Total 0.9 mg/dL (0.2-1.3); Blood Urea Nitrogen 33 mg/dL (9-20); Calcium 9.8 mg/dL (8.4-10.2); Carbon Dioxide 36 mmol/L (22-30); Chloride 96 mmol/L (98-107); Estimated Glomerular Filt Rate > 60; Glucose 113 mg/dL (75-110); Potassium 4.5 mmol/L (3.4-5.0); Sodium 137 mmol/L (137-145)
[2020-11-01 12:39] LABS: INR 1.1; Prothrombin Time 14.6 Seconds (11.1-14.7)
[2020-11-01 12:40] LABS: Band Neutrophils Percent 2 % (0-6); Eosinophils Absolute Manual 0.12 K/mm3 (0.02-0.5); Eosinophils Percent Manual 1 % (0-4); Lymphocytes Absolute Manual 1.68 K/mm3 (1.1-4.5); Monocytes Percent Manual 10 % (3-9); Myelocytes Percent 3 %; Neutrophils Absolute Manual 8.64 K/mm3 (1.3-6.7); Neutrophils Percent Manual 70 % (46-73); Total Cells Counted 100
[2020-11-01 12:41] LABS: Hypochromasia 1+ (NORMAL); Platelet Estimate Decreased (Adequate); Stomatocytes 1+ (NORMAL)
[2020-11-01 12:42] LABS: Partial Thromboplastin Time 29.6 SECONDS (22.3-36.8)
[2020-11-01 12:45] LABS: CRP 22.2 mg/dL (<1.0)
[2020-11-01 12:46] LABS: Troponin I 0.054 ng/mL (0.000-0.034)
[2020-11-01 13:01] LABS: Add Urine Microscopic? YES; Appearance Urine Clear (Clear); Bilirubin Urine Negative (Negative); Blood Urine Negative (Negative); Color Urine Yellow (Yellow); Glucose Urine UA Negative (Negative); Ketones Urine Negative (Negative); Leukocyte Esterase Ur Negative LEU/UL (Negative); Mucus Urine Rare /lpf; Nitrate Urine Negative (Negative); Protein Urine 2+ mg/dL (Negative); Specific Grav Ur 1.018 (1.001-1.035); Squamous Epithelial Cell Urine Rare /hpf (Few); WBC Urine 0-3 /hpf
--- NOTE | 2020-11-01 13:11 | ED.FEVER ---
HPI - Fever General Chief Complaint: Fever Stated Complaint: fever Time Seen by Provider: 11/01/20 12:13 Source: RN notes reviewed Mode of arrival: EMS Limitations: altered mental status and dementia History of Present Illness HPI Narrative: An 84-year-old male who is alert and oriented x0 at baseline presents to the emergency department with a fever. Patient is unable to provide any history. Per EMS and nursing records patient developed a fever of 102 ?F. On arrival here he was found to be 99. Patient is nonverbal and unable to provide any history. Patient was just recently tested for COVID-19, on the first of this month and was found to be 3 days ago. Related Data Home Medications Medication Instructions Recorded Confirmed Acidophilus Probiotic 250 mg FEEDING TUBE DAILY 10/02/20 10/02/20 Aspir-81 81 mg FEEDING TUBE DAILY 10/02/20 10/02/20 finasteride 5 mg FEEDING TUBE DAILY 10/02/20 10/02/20 furosemide 40 mg FEEDING TUBE DAILY 10/02/20 10/02/20 sertraline 100 mg FEEDING TUBE DAILY 10/02/20 10/02/20 guaifenesin 200 mg PO Q4H PRN 10/20/20 albuterol mcg INHALATION 11/01/20 bisacodyl 10 mg RECTAL DAILY PRN 11/01/20 magnesium citrate [Citroma] 11/01/20 magnesium hydroxide [Milk of FEEDING TUBE PRN 11/01/20 Magnesia] sodium phosphates [Fleet Enema] ml RECTAL PRN 11/01/20 Allergies Allergy/AdvReac Type Severity Reaction Status Date / Time meperidine Allergy Unknown Unknown Verified 11/01/20 11:59 Review of Systems Review of Systems: ROS unobtainable: Yes unobtainable due to mental status [facility] Past Medical History Medical History BPH (benign prostatic hyperplasia) Chronic GERD CVA (cerebral vascular accident) Surgical History Surgical History History of total hip replacement Right hip replacement hardware was seen on an old x-ray last year. Status post insertion of percutaneous endoscopic gastrostomy (PEG) tube Family History Family History Daughter Pancreatic cancer Social History Social History (Updated 11/01/20 @ 14:32 by Kt Alcocer DO) Social History: [facility]. Patient is a DNR. Smoking status: Former smoker Tobacco type: cigarettes Alcohol intake: never Substance use: never Gender identity (if verbalized by the patient): Male Spiritual care concerns: No Exam Narrative: Exam Narrative: GENERAL: Contracted elderly male, appears disheveled. HEAD: Normocephalic, atraumatic. EYES: PERRLA and EOMI. ENT: Nares clear, no rhinorrhea or epistaxis. Mucous membranes moist. NECK: Supple. No adenopathy or masses. No carotid bruits or JVD CHEST: Clear to auscultation. Difficult exam, patient contracted HEART: Regular rate and rhythm. No murmur heard. Normal peripheral pulses. ABDOMEN: Soft, nontender, nondistended, normal active bowel sounds. EXTREMITIES: Normal range of motion. No edema. SKIN: Warm, dry, no rash. NEURO: No focal deficits. Alert and oriented x0, at baseline. PSYCH: Demented and nonverbal. Course Consultations Consultation #1: Consultation was obtained with AGNES Gutiérrez for hospitalist services. He was explained that patient was hydrated and had an elevated lactic acid in spite of hydration. Patient was allegedly febrile at group home. He is found to be afebrile here. Patient will be placed in observation for continued hydration and monitoring. Time: 16:38 Vital Signs Vital signs: Vital Signs Temperature 37.2 C 11/01/20 11:11 Pulse Rate 100 11/01/20 11:11 Respiratory Rate 24 H 11/01/20 11:11 Blood Pressure 126/84 11/01/20 11:11 Pulse Oximetry 92 11/01/20 11:11 Temperature 37.2 C 11/01/20 11:11 Pulse Rate 104 H 11/01/20 13:41 Respiratory Rate 21 H 11/01/20 13:41 Blood Pressure 102/49 L 11/01/20 13:41 Pulse Oximetry 94 11/01/20 13:41 [facility] -
[2020-11-01] MEDS: LACTATED RINGERS 1,000 ML 999 ML IV CONT (13:58)
[2020-11-01 15:15] LABS: Reflex Lactic Acid Yes or No Add Lactic
[2020-11-01 15:27] LABS: Lactic Acid Reflex 4.3 mmol/L (0.7-2.1)
--- NOTE | 2020-11-01 18:30 | PC.NURSE ---
This patient, Donald Marroquin, was admitted to Medical Room 349-01. Patient/family oriented to hospital policies and general routines including ID bracelet, bed and alarms, visiting hours, pain management, procedures, bathroom and other care routines, personal items, smoking policy, room service/diet, and visiting hours. Information on how to activate the Rapid Response Team has been discussed. Patient/Family are encouraged to report perceived risks to care and to ask questions if they do not understand what they are told or what they should do.
[2020-11-01] MEDS: LACTATED RINGERS 1,000 ML 125 ML IV CONT (18:39)
--- NOTE | 2020-11-01 20:13 | PM.IMHP ---
H&P: HPI History of Present Illness Date/Time: 11/01/20 20:13 Chief Complaint: Fever (sent from senior care) Narrative: Donald Marroquin is a 84 year old male with a past medical history of CVA, dysphagia with chronic G-tube, and dementia who presented to the ER from [facility] via EMS due to fever. The patient reportedly had a temperature of 102. The patient is alert oriented times 0 at baseline. The patient was tested for COVID-19 on October 29 and was negative. He was also tachycardic with heart rate in the low 100s and a respiratory rate around 30 on presentation to the ER. Patient has not had any significant cough. He has chronic G-tube dependent. Patient had been admitted the hospital in early September due to pleural effusion and paroxysmal supraventricular tachycardia and suspected possible lymphoma which the family did not want further workup. Patient was noted have leukocytosis and lactic acidosis. His lactic acid level increased despite 1 L fluid bolus. Has history of chronic troponin elevation in the past. His CRP was elevated at 22.2. He did not have any evidence of wounds or other sources of infection. His chest x-ray demonstrated he opacities concerning for edema versus chronic lung disease but given patient's fever pneumonia is higher on differential. Review of Systems Review of Systems: ROS unobtainable: Yes unobtainable due to medical condition (Dementia) [facility] Past Medical History Medical History (Updated 11/02/20 @ 00:34 by Tanisha Marino DO) BPH (benign prostatic hyperplasia) C. 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 Hydrocephalus With history of FACILITY DESIGNER shunt Paroxysmal supraventricular tachycardia September 2020 Pulmonary embolism With IVC filter placement Retinal vein occlusion 2000 Surgical History Surgical History (Updated 11/02/20 @ 00:27 by Tanisha Marino DO) History of appendectomy History of bilateral hip replacements History of hernia repair History of prostatectomy History of right hemicolectomy History of umbilical hernia repair Status post insertion of percutaneous endoscopic gastrostomy (PEG) tube Family History Family History Daughter Pancreatic cancer Social History Social History (Updated 11/02/20 @ 00:28 by Tanisha Marino DO) Social History: The patient resides at [facility]. He has been in a senior care for over 12 years. His has dementia and lives with POA in [place]. Patient has a former 50 pack per year smoking history. halfway physician: Dr. Gilmar Lambert Code status: DNR. POA: Niece Smoking status: Former smoker Tobacco type: cigarettes Alcohol intake: unknown Substance use: unknown Spiritual care concerns: No Meds Home Medications and Allergies Home Medications Medication Instructions Recorded Confirmed Type Acidophilus Probiotic 250 mg FEEDING TUBE DAILY 10/02/20 11/01/20 History Aspir-81 81 mg FEEDING TUBE DAILY 10/02/20 11/01/20 History finasteride 5 mg FEEDING TUBE DAILY 10/02/20 11/01/20 History furosemide 40 mg FEEDING TUBE DAILY 10/02/20 11/01/20 History sertraline 100 mg FEEDING TUBE DAILY 10/02/20 11/01/20 History omeprazole-sodium bicarbonate 1 packet FEEDING TUBE DAILY #30 ea 10/06/20 11/01/20 Rx [Zegerid] guaifenesin 200 mg Q6H PRN 10/20/20 11/01/20 History albuterol 90 mcg INHALATION Q4H PRN 11/01/20 11/01/20 History bisacodyl 10 mg RECTAL DAILY PRN 11/01/20 11/01/20 History magnesium citrate [Citroma] 296 ml PO DAILY PRN 11/01/20 11/01/20 History magnesium hydroxide [Milk of 30 ml PO DAILY PRN 11/01/20 11/01/20 History Magnesia] sodium phosphates [Fleet Enema] See Rx Instructions .ROUTE 11/01/20 11/01/20 History .COMPLEX PRN
[2020-11-01] MEDS: SODIUM CHLORIDE 0.9% IV 1,000 ML 999 ML IV CONT (20:52)
[2020-11-01] MEDS: AMPICILLIN SULB 3 GM/NS 100 ML 3 GM/100 ML VIAL IVPB (23:20)
[2020-11-02 04:18] VITALS: BP 106/59; PULSE 110; RESP 18; TEMP 36.4; O2SAT 95
[2020-11-02] MEDS: AMPICILLIN SULB 3 GM/NS 100 ML 3 GM/100 ML VIAL IVPB ×3 (06:03→18:10)
[2020-11-02] MEDS: LANSOPRAZOLE ORAL SUSP 30 MG/10 ML ORAL.SUSP FEED TUBE (06:04)
[2020-11-02] MEDS: LACTATED RINGERS 1,000 ML 125 ML IV CONT ×2 (06:04→13:40)
[2020-11-02 06:05] LABS: Hematocrit 35.7 % (42.0-52.0); Mean Corpuscular HGB Conc 30.8 g/dl (32-36); Mean Corpuscular Hemoglobin 31.1 pg (26-34); Mean Corpuscular Volume 100.8 fl (80-100); Platelet Count Result 51 k/mm3 (150-375); Red Blood Count 3.54 M/mm3 (4.6-6.20); Red Cell Distribution Width 17.7 % (11.5-14.5)
[2020-11-02 06:18] LABS: Alanine Aminotransferase 34 U/L (4-50); Alkaline Phosphatase 71 U/L (38-126); Anion Gap 6 mmol/L (8-16); Aspartate Amino Transferase 85 U/L (17-59); Bilirubin,Total 0.8 mg/dL (0.2-1.3); Blood Urea Nitrogen 39 mg/dL (9-20); Calcium 9.3 mg/dL (8.4-10.2); Carbon Dioxide 29 mmol/L (22-30); Chloride 101 mmol/L (98-107); Estimated CRCL calculation 46 ml/min; Estimated Glomerular Filt Rate > 60; Glucose 98 mg/dL (75-110); Potassium 5.2 mmol/L (3.4-5.0); Sodium 136 mmol/L (137-145)
[2020-11-02 06:32] LABS: D Dimer 2.97 ug/mL (<0.48)
[2020-11-02 06:35] LABS: CRP 25.2 mg/dL (<1.0)
[2020-11-02 06:37] LABS: Hypochromasia 1+ (NORMAL); Lymphocytes Absolute Manual 0.88 K/mm3 (1.1-4.5); Monocytes Absolute Manual 0.66 K/mm3 (0.1-0.90); Monocytes Percent Manual 6 % (3-9); Neutrophils Percent Manual 86 % (46-73); Platelet Estimate Decreased (Adequate); Total Cells Counted 100
[2020-11-02 06:38] LABS: Atypical Lymphocytes Present; Microcytosis 1+ (NORMAL)
[2020-11-02 08:03] LABS: Ferritin > 2000.00 ng/mL (11.1-264)
[2020-11-02] MEDS: ASPIRIN 81 MG CHEWABLE TABLET FEED TUBE (11:11)
[2020-11-02] MEDS: SERTRALINE HCL 25 MG TABLET 100 MG FEED TUBE (11:11)
[2020-11-02] MEDS: ACIDOPHILUS PACKET 1 PKT PACKET FEED TUBE (11:11)
[2020-11-02 14:00] VITALS: BP 103/78; PULSE 95; RESP 18; TEMP 36.8; O2SAT 93
[2020-11-02 14:11] VITALS: BMI 25.0
--- NOTE | 2020-11-02 15:24 | PCNSR ---
On 11/02/20, the student, Ivory Vidal, provided care and completed [facility] documentation on this patient. I have reviewed the student's documentation and agree with the findings.
--- NOTE | 2020-11-02 15:24 | PCDIET ---
Spoke with RN, Julianna. Patient on Jevity 1.5 tube feedings at correction. Recommend 240mL Jevity 1.5 every 4 hours x 5 feedings/day for 1800kcal, 76g protein and 912mL free water. Suggest 100mL water flush after each feeding to meet estimated fluid needs.
--- NOTE | 2020-11-02 15:50 | WPDPN ---
Progress Note: A&P Assessment and Plan (1) Pneumonia: Qualifiers: Laterality: right Lung location: lower lobe of lung Pneumonia type: due to unspecified organism Qualified Code(s): J18.9 - Pneumonia, unspecified organism Code(s): J18.9 - Pneumonia, unspecified organism Status: Acute Assessment and Plan: Patient brought to the ED for fever. No fevers documented here. Chest x-ray showing interstitial opacities in the visualized portion of right lung, consistent with mild pulmonary edema versus chronic lung disease. Images reviewed and compared to prior images. Patient is severely rotated. He remains on room air. Continue Unasyn and vancomycin which will cover for aspiration. (2) Acidosis, lactic: Code(s): E87.2 - Acidosis Status: Acute Assessment and Plan: Lactic acid peaked at 4.3 and has trended down to 3.0. Anion gap is normal. No significant renal failure. No documented hypotension. Blood cultures are no growth. Continue to monitor. (3) Fever: Qualifiers: Fever type: unspecified Qualified Code(s): R50.9 - Fever, unspecified Code(s): R50.9 - Fever, unspecified Status: Acute Assessment and Plan: No documented fevers here. Continue to monitor. As above. (4) Gastrostomy tube dependent: Code(s): Z93.1 - Gastrostomy status Status: Acute Assessment and Plan: Stable. Stem Dryer Maintainer to see about TF but TF not started yet so will resume tube feedings now. Stop IV fluids if tolerating tube feedings. (5) SIRS (systemic inflammatory response syndrome): Code(s): R65.10 - Systemic inflammatory response syndrome (SIRS) of non-infectious origin without acute organ dysfunction Status: Acute Assessment and Plan: Present on admission with elevated WBC and lactic acidosis; fever in the outpatient setting. Related to PNA possibly. No fevers now. Continue abx. Follow (6) Thrombocytopenia: Code(s): D69.6 - Thrombocytopenia, unspecified Status: Acute Assessment and Plan: Plt count normal last month. Plt count 60K on admission and has dropped to 51K now. Viral related? No evidence of hemolytic anemia. No heparin products. Check B12 level. Follow. Transfuse as needed. (7) DVT prophylaxis: Code(s): Z29.9 - Encounter for prophylactic measures, unspecified Status: Acute Assessment and Plan: SCDs (8) Elevated troponin: Code(s): R77.8 - Other specified abnormalities of plasma proteins Status: Acute Assessment and Plan: Trop mildly elevated at 0.054. This is lower thatn one month ago. EKG on admission shows sinus tachycardia and borderline ST T wave changes. Could have had another episode of SVT that went undetected or Type II from the SIRS/sepsis picture. Repeat Trop. Review of Systems Review of Systems: ROS unobtainable: Yes unobtainable due to mental status Exam Narrative: Exam Narrative: AF 98.3 103/78 95 18 93% ra Gen - chronically ill appearing male in NARD HEENT - dried blood at the nares Chest - clear to quiet respirations, nml RR CV - RRR S1/S2 Abd - Soft, ND, +BS, abd binder in place Ext - No pedal edema Neuro - nonverbal Objective Data Vital Signs Vital Signs: Vital Signs - 24 hr 11/01/20 16:30 11/01/20 17:30 11/01/20 17:50 Temperature Pulse Rate 97 97 97 Respiratory Rate 18 20 16 Blood Pressure 107/94 H 118/73 162/95 H Pulse Oximetry 96 100 98 11/01/20 18:50 11/01/20 19:00 11/01/20 20:49 Temperature 98.5 F 97.8 F Pulse Rate 90 99 Respiratory Rate 18 16 Blood Pressure 107/46 L 152/45 H Pulse Oximetry 89 L 93 95 11/02/20 04:18 11/02/20 14:00 Temperature 97.6 F 98.3 F Pulse Rate 110 H 95 Respiratory Rate 18 18 Blood Pressure 106/59 L 103/78 Pulse Oximetry 95 93 Intake/Output Intake/Output: Intake & Output 10/30/20 10/31/20 11/01/20 11/02/20 23:59 23:59 23:59 23:59
[2020-11-02 16:55] LABS: Potassium 4.7 mmol/L (3.4-5.0)
[2020-11-02 20:00] VITALS: O2SAT 91
[2020-11-02 20:33] VITALS: BP 109/80; PULSE 140; RESP 24; TEMP 37.1; O2SAT 91
[2020-11-03] VITALS (13 sets, daily range): BP systolic 76–142; BP diastolic 48–93; PULSE 90–170; RESP 26–58; TEMP 35.8–36.3; O2SAT 91–94
[2020-11-03] MEDS: AMPICILLIN SULB 3 GM/NS 100 ML 3 GM/100 ML VIAL IVPB ×2 (00:26→06:10)
[2020-11-03] MEDS: LACTATED RINGERS 1,000 ML 70 ML IV CONT (00:26)
[2020-11-03 07:53] LABS: Hematocrit 33.6 % (42.0-52.0); Hemoglobin 10.7 g/dL (14.0-18.0); Immature Platelet Fraction Pct 4.7 % (0.9-11.2); Mean Corpuscular HGB Conc 31.8 g/dl (32-36); Mean Corpuscular Hemoglobin 31.1 pg (26-34); Mean Corpuscular Volume 97.7 fl (80-100); Mean Platelet Volume 11.1 fl (7.4-10.4); Platelet Count Result 50 k/mm3 (150-375); Red Blood Count 3.44 M/mm3 (4.6-6.20); Red Cell Distribution Width 17.6 % (11.5-14.5); White Blood Count 15.6 K/mm3 (4.5-10.0)
[2020-11-03 08:12] LABS: Alanine Aminotransferase 35 U/L (4-50); Albumin Level 2.8 g/dL (3.5-5.1); Alkaline Phosphatase 86 U/L (38-126); Anion Gap 7 mmol/L (8-16); Aspartate Amino Transferase 95 U/L (17-59); Bilirubin,Total 0.8 mg/dL (0.2-1.3); Blood Urea Nitrogen 55 mg/dL (9-20); Calcium 9.1 mg/dL (8.4-10.2); Carbon Dioxide 29 mmol/L (22-30); Chloride 102 mmol/L (98-107); Estimated CRCL calculation 31 ml/min; Estimated Glomerular Filt Rate 44; Glucose 103 mg/dL (75-110); Magnesium 2.1 mg/dL (1.6-2.3); Phosphorus 5.9 mg/dL (2.5-4.5); Sodium 138 mmol/L (137-145)
[2020-11-03 08:16] LABS: Lactic Acid Reflex 5.1 mmol/L (0.7-2.1)
[2020-11-03 08:51] LABS: Band Neutrophils Percent 12 % (0-6); Eosinophils Absolute Manual 2.18 K/mm3 (0.02-0.5); Eosinophils Percent Manual 14 % (0-4); Lymphocytes Absolute Manual 0.62 K/mm3 (1.1-4.5); Monocytes Absolute Manual 0.78 K/mm3 (0.1-0.90); Monocytes Percent Manual 5 % (3-9); Neutrophils Absolute Manual 12.01 K/mm3 (1.3-6.7); Neutrophils Percent Manual 65 % (46-73); Total Cells Counted 100
[2020-11-03 08:52] LABS: Platelet Estimate Decreased (Adequate)
--- NOTE | 2020-11-03 09:02 | PM.IMPN ---
Progress Note: A&P Assessment and Plan (1) Pneumonia: Qualifiers: Laterality: right Lung location: lower lobe of lung Pneumonia type: due to unspecified organism Qualified Code(s): J18.9 - Pneumonia, unspecified organism Code(s): J18.9 - Pneumonia, unspecified organism Status: Acute Assessment and Plan: Patient brought to the ED for fever. No fevers documented here. Chest x-ray today reviewed showing worsened diffuse lung disease. DOubt edema and suspect PNA given the fever prior to admission. He currently has oxygen requirement now at 3 L. Continue Unasyn and vancomycin which will cover for aspiration. Lactic higher at 5.1. Will hold on Lasix since he now has MOHIT. Place Stevens. (2) Acidosis, lactic: Code(s): E87.2 - Acidosis Status: Acute Assessment and Plan: Lactic acid peaked at 4.3 and trended down to 3.0 yesterday. Lactic up to 5.1 today now. Now with MOHIT. No documented hypotension. Blood cultures are no growth. Continue to monitor. Continue IV antibiotics (3) Fever: Qualifiers: Fever type: unspecified Qualified Code(s): R50.9 - Fever, unspecified Code(s): R50.9 - Fever, unspecified Status: Acute Assessment and Plan: No documented fevers here. Continue to monitor. As above. (4) Gastrostomy tube dependent: Code(s): Z93.1 - Gastrostomy status Status: Acute Assessment and Plan: Stable. Contrast appears to be in the stomach. Start trickle feeds to see how he tolerates. (5) SIRS (systemic inflammatory response syndrome): Code(s): R65.10 - Systemic inflammatory response syndrome (SIRS) of non-infectious origin without acute organ dysfunction Status: Acute Assessment and Plan: Present on admission with elevated WBC and lactic acidosis; fever in the outpatient setting. Related to PNA possibly. No fevers now. BCx NGTD. Continue abx. Follow (6) Thrombocytopenia: Code(s): D69.6 - Thrombocytopenia, unspecified Status: Acute Assessment and Plan: Plt count normal last month. Plt count 60K on admission and has dropped to 50K now. Viral related? No evidence of hemolytic anemia. No heparin products. B12 level pending. Follow. Transfuse as needed. (7) DVT prophylaxis: Code(s): Z29.9 - Encounter for prophylactic measures, unspecified Status: Acute Assessment and Plan: SCDs (8) Elevated troponin: Code(s): R77.8 - Other specified abnormalities of plasma proteins Status: Acute Assessment and Plan: Trop mildly elevated at 0.054. This is lower than one month ago. EKG on admission shows sinus tachycardia and borderline ST T wave changes. Could have had another episode of SVT that went undetected or Type II from the SIRS/sepsis picture. Repeat Trop pending. (9) MOHIT (acute kidney injury): Code(s): N17.9 - Acute kidney failure, unspecified Status: Acute Assessment and Plan: Cr up to 1.5 when only 1.0 yesterday. Could be AIN from the abx (PCN?) or possibly urine retention. Favor AIN due to eosinophilia noted on smear. Will place Stevens to watch UOP. Renal US. Check urine eos. Continue IV fluids. (10) Hydrocephalus: Code(s): G91.9 - Hydrocephalus, unspecified Status: Acute Assessment and Plan: Patient is nonverbal. He is a DNR at this time. Paperwork has been completed for niece to become power of managing attorney. Will speak with her about hospice. Spoke with niece and update provided. All questions answered. The family is considering hospice but they will talk with the (but she has dementia). They do not want HD. 1700 11/03/20: Spoke with niece again. Had another long discussion with niece. Discussed again how the patient's condition has worsened. Discussed the specific issues such as MOHIT, elevated lactic acid, and concern for aspiration. All questions answered
[2020-11-03 10:44] LABS: Reflex Lactic Acid Yes or No Add Lactic
[2020-11-03 11:10] LABS: Lactic Acid 3.6 mmol/L (0.7-2.1)
[2020-11-03 12:35] LABS: Troponin I 0.205 ng/mL (0.000-0.034)
[2020-11-03 13:37] LABS: Folic Acid 10.7 ng/mL (2.76->20)
[2020-11-03 13:56] LABS: CRP 35.5 mg/dL (<1.0)
[2020-11-03] MEDS: METOPROLOL TARTRATE INJ 5 MG/5 ML VIAL IV PUSH (17:38)
[2020-11-03] MEDS: SODIUM CHLORIDE 0.9% IV 250 ML 999 ML IV CONT (18:43)
[2020-11-03 20:38] LABS: SARS-CoV-2 RNA PCR Negative
[2020-11-03] MEDS: MORPHINE SULFATE (*CRX) 2 MG/ML INJ IV PUSH (21:11)
[2020-11-04] VITALS (8 sets, daily range): BP systolic 89–98; BP diastolic 46–56; PULSE 96–100; RESP 32–46; TEMP 36.1–36.8; O2SAT 90–92
[2020-11-04] MEDS: LORazepam INJ (*CRX) 2 MG/ML VIAL 1 MG IV PUSH (02:57)
[2020-11-04] MEDS: MORPHINE SULFATE (*CRX) 2 MG/ML INJ IV PUSH (09:21)
--- NOTE | 2020-11-04 11:26 | PM.IMPN ---
Progress Note: A&P Assessment and Plan (1) Pneumonia: Qualifiers: Pneumonia type: due to unspecified organism Laterality: right Lung location: lower lobe of lung Qualified Code(s): J18.9 - Pneumonia, unspecified organism Code(s): J18.9 - Pneumonia, unspecified organism Status: Acute (2) Acidosis, lactic: Code(s): E87.2 - Acidosis Status: Acute (3) Fever: Qualifiers: Fever type: unspecified Qualified Code(s): R50.9 - Fever, unspecified Code(s): R50.9 - Fever, unspecified Status: Acute (4) Gastrostomy tube dependent: Code(s): Z93.1 - Gastrostomy status Status: Acute (5) SIRS (systemic inflammatory response syndrome): Code(s): R65.10 - Systemic inflammatory response syndrome (SIRS) of non-infectious origin without acute organ dysfunction Status: Acute (6) Thrombocytopenia: Code(s): D69.6 - Thrombocytopenia, unspecified Status: Acute (7) Elevated troponin: Code(s): R77.8 - Other specified abnormalities of plasma proteins Status: Acute (8) DVT prophylaxis: Code(s): Z29.9 - Encounter for prophylactic measures, unspecified Status: Acute Assessment and Plan: SCDs Additional Plan Long discussion yesterday family about the change in the clinical status. Discussed hospice as an option. The knee spoke with other family members. I spoke with her later in the day and she wished to proceed with comfort measures. Explained in detail what this entails and she was agreeable. Treatment medications were stopped. He was started on morphine and Ativan as needed. Heart rate better controlled. Patient is still very tachypneic. Will start morphine drip. Hospice consult Subjective Date/time seen: 11/04/20 11:26 Interval history: Date of service 11/04 84yo male with hx of CVA and dysphagia s/pGTube here for fever and AMS. COVID negative 10/29/20 Patient somnolent and nonverbal Review of Systems Review of Systems: ROS unobtainable: Yes unobtainable due to mental status Exam Narrative: Exam Narrative: AF 98.2 89/46 97 32 90% 3L Gen - chronically ill appearing male who is tachypneic Chest - coarse BS CV - tachycardic Abd - Soft, ND Ext - No pedal edema Neuro - somnolent Objective Data Vital Signs Vital Signs: Vital Signs - 24 hr 11/03/20 14:00 11/03/20 17:20 11/03/20 17:38 Temperature 97.3 F L Pulse Rate 170 H 170 H 170 H Respiratory Rate 40 H 58 H Blood Pressure 124/93 H Pulse Oximetry 92 11/03/20 17:54 11/03/20 18:05 11/03/20 18:06 Temperature Pulse Rate 125 H 132 H Respiratory Rate 44 H 44 H 44 H Blood Pressure 76/50 L 88/48 L Pulse Oximetry 94 94 11/03/20 18:08 11/03/20 18:59 11/03/20 20:30 Temperature 96.4 F L Pulse Rate 90 Respiratory Rate 44 H 32 H 50 H Blood Pressure 88/48 L 78/50 L 90/52 L Pulse Oximetry 92 11/04/20 00:00 11/04/20 01:27 11/04/20 02:47 Temperature Pulse Rate 96 97 96 Respiratory Rate 36 H 44 H 44 H Blood Pressure Pulse Oximetry 92 90 91 11/04/20 05:32 11/04/20 08:00 11/04/20 09:19 Temperature 98.2 F Pulse Rate 97 97 97 Respiratory Rate 46 H 44 H 44 H Blood Pressure 89/46 L Pulse Oximetry 91 90 90 11/04/20 11:01 Temperature Pulse Rate Respiratory Rate 32 H Blood Pressure Pulse Oximetry Intake/Output Intake/Output: Intake & Output 11/01/20 11/02/20 11/03/20 11/04/20 23:59 23:59 23:59 23:59 Intake Total 2350 3690 1275 Output Total 500 400 400 Balance 1850 3690 875 -400 Meds/Results Medications: Active Medications Generic Name Dose Route Start Last Admin Trade Name Freq PRN Reason Stop Dose Admin Acetaminophen 650 mg 11/03/20 17:16 Acetaminophen 650 Mg Suppository RECTAL Q6H PRN Mild Pain (1-3) or Fever Atropine Sulfate 1 drop 11/03/20 17:16 Atropine Sulfate 1% Ophth Soln 5 Ml Bottle SUBLINGUAL Q4H PRN Secretions Bisacodyl 10
[2020-11-04] MEDS: MORPHINE SULFATE INJ (*CRX) 50 MG in SODIUM CHLORIDE 0.9% IV 95 ML IV CONT (12:41)
--- NOTE | 2020-11-05 00:54 | PC.NURSE ---
Patient at 2314 on 11/04/2020. Called wind turbine engineerAIDEN Stanford to assist with post-mortem responsibilities for patient.
--- NOTE | 2020-11-05 06:28 | P.CDI_ITS ---
CDI Query Clarification Request -Pneumonia has been documented -SIRS of non-infectious origin; present on admission; and related to PNA possibly has been documented -Elevated troponin, type II from the SIRS/sepsis picture has been documented Please clarify diagnosis: * SIRS from non infectious origin (please clarify origin) * Sepsis from infectious origin * Unable to determine <Teresa Luna RN - Last Filed: 11/05/20 06:31>
--- NOTE | 2020-11-05 06:28 | WPDCDIQUERY2 ---
CDI Query Clarification Request -Pneumonia has been documented -SIRS of non-infectious origin; present on admission; and related to PNA possibly has been documented -Elevated troponin, type II from the SIRS/sepsis picture has been documented Please clarify diagnosis: SIRS from non infectious origin (please clarify origin) Sepsis from infectious origin Unable to determine <Teresa Luna RN - Last Filed: 11/05/20 06:31>
--- NOTE | 2020-11-05 08:10 | PM.DDS ---
Discharge Sum: Prov Provider Primary care physician: Reynold Sandy MD Admitting provider: Clifford Steinberg MD Consults: 11/02/20 13:31 Consult to Dietitian Routine Reason for Consult:: Tube feeding 11/03/20 17:18 Consult to Spiritual Care Services Routine Comment: 11/04/20 Care Coordination Consult Routine Comment: Reason for Consult:: Hospice Referral Pronouncing clinician: Anand Steinberg Discharge Sum: Diag PCOD Pneumonia Contributing Factors (1) Pneumonia: (2) Acidosis, lactic: (3) Fever: (4) Gastrostomy tube dependent: (5) SIRS (systemic inflammatory response syndrome): (6) Thrombocytopenia: (7) DVT prophylaxis: (8) Elevated troponin: (9) MOHIT (acute kidney injury): (10) Hydrocephalus: Discharge Sum: Summary Date and Time Date of admission: 11/01/20 17:42 Date of : 11/04/20 Time of : 23:14 Summary Details: 84yo male with a past medical history of CVA, dysphagia with chronic G-tube, and dementia who presented to the ER from [facility] via EMS due to fever. Please see H&P for details. Chest x-ray showed interstitial opacities mostly in the right lung. Given his chronic dysphagia and fever, suspected had aspiration pneumonia. Patient had sepsis present on admission related to pneumonia. He was started on broad-spectrum IV antibiotics. His lactic acid was 4.3. His condition worsened with lactic increased to 5.1 and he developed acute kidney injury as well. Blood cultures remain negative. Multiple long discussions with family about the patient's worsening clinical condition. After she discussed with family, the niece decided to proceed with comfort measures. It was explained in detail what this entails and she was agreeable. Treatment medications were stopped and patient was started on comfort measures. He on the evening of November 04. Additional Data Attending physician: Clifford Steinberg MD
== END 2020-11-04 23:14 | disposition expired | DRG 871 ==
LOC: ANHED 17:13 → ANH3MED 17:26
PROVIDERS: Emergency Medicine; Internal Medicine; Admitting Provider Internal Medicine; Emergency Provider Emergency Medicine; PCP Family Medicine; Visit Provider Internal Medicine
DX: A41.9 Sepsis, unspecified organism (principal); J69.0 Pneumonitis due to inhalation of food and vomit; E87.2 Acidosis; G91.9 Hydrocephalus, unspecified; N17.9 Acute kidney failure, unspecified; D69.6 Thrombocytopenia, unspecified; Z20.822 Contact with and (suspected) exposure to COVID-19; F03.90 Unspecified dementia, unspecified severity, without behavioral disturbance, psychotic disturbance, mood disturbance, and anxiety; R77.8 Other specified abnormalities of plasma proteins; K21.9 Gastro-esophageal reflux disease without esophagitis; I69.391 Dysphagia following cerebral infarction; R13.10 Dysphagia, unspecified; Z93.1 Gastrostomy status; N40.0 Benign prostatic hyperplasia without lower urinary tract symptoms; Z51.5 Encounter for palliative care; Z66 Do not resuscitate; Z96.643 Presence of artificial hip joint, bilateral; Z79.82 Long term (current) use of aspirin; Z79.899 Other long term (current) drug therapy; Z85.6 Personal history of leukemia; Z86.711 Personal history of pulmonary embolism; Z87.891 Personal history of nicotine dependence; Z90.49 Acquired absence of other specified parts of digestive tract; Z98.2 Presence of cerebrospinal fluid drainage device
CPT/HCPCS: 36415; 49465; 51701; 71045; 76775; 80048; 80053; 80076; 81001; 82607; 82728; 82746; 83605; 83735; 84100; 84132; 84484; 85025; 85055; 85380; 85610; 85730; 85999; 86140; 87040; 93005; 96360; 99285; A9270; C9803; J0295; J2060; J2270; J3370; J7030; J7120; U0003; U0005